=== PATIENT | female | born 1935 | race Caucasian/White ===

== ENCOUNTER 2017-08-06 12:41 | Inpatient (IN) ==
[2017-08-06] MEDS ORDERED: CeFAZolin Syr 2,000MG/20 ML 2,000 MG/20 ML SYRINGE IVPB ONE (13:11)
[2017-08-06] MEDS ORDERED: Vancomycin 1,250 MG in D5% in Water 250 ML IVPB ONE (13:11)
[2017-08-06] MEDS ORDERED: Lidocaine -MPF 1% 2 ML VIAL ID ONE (13:11)
[2017-08-06] MEDS ORDERED: Ringers Solution, Lactated 1,000 ML IVC SCH (13:15)
[2017-08-06] MEDS ORDERED: Albuterol 2.5 MG/3 ML NEBULIZER IH ONE (13:21)
--- NOTE | 2017-08-06 13:21 | Anesthesia Evaluation PreOp ---
Date of Encounter: 08/06/17 Time of Encounter: 13:18 - Past History Planned Operation: LLE graft thrombectomy with revision Cardiac History: HTN, Hyperlipidemia, Other (PAD) Pulmonary History: COPD SAW GRINDER History: Denies Any Significant HX Other Medical History: Diabetes Type II, Thyroid (hypothyroid), Other ([place]' s dz) Anesthesia History: No Prior Anesthetic Complications, Past Anesthesia ( hysterectomy, fem-pop bypass, excision scc of left hand) Alcohol Use: recent Drug use: none Medications and Allergies Aspirin [Serene Chewable Aspirin] 81 mg PO 05/02/15 [History] Calcium 600 + Vit D 400 Tablet PO BID 05/02/15 [History] Gabapentin 300 mg PO 05/02/15 [History] Imipramine HCl [Tofranil] 25 mg PO HS 05/02/15 [History] Metoprolol [Lopressor] 50 mg PO DAILY 05/02/15 [History] Carbidopa/Levodopa/Entacapone [Stalevo 75 Tablet] 1 each PO 02/08/16 [History] Ciprofloxacin HCl [Cipro] 250 mg PO BID 5 Days tablet 02/08/16 [Rx] Hydrocortisone [Cortef] 5 mg PO 02/08/16 [History] Hydrocortisone [Cortef] 10 mg PO DAILY 02/08/16 [History] Losartan/HCTZ [Hyzaar 50-12.5 Tablet] 25 mg PO DAILY 02/08/16 [History] Pravastatin Sodium [Pravachol] 80 mg PO 02/08/16 [History] 3 Allergy/AdvReac Type Severity Reaction Status Date / Time amlodipine Allergy Hives Verified 05/02/15 13:11 codeine Allergy Anxiety Verified 05/02/15 13:11 carisoprodol [From Soma] AdvReac Itching Verified 05/02/15 13:06 aml AdvReac Swelling Uncoded 05/02/15 13:11 of Lip/Tongue/Throat - Meds/Allergy Pre-op Review Medications Reviewed: Yes Allergies Reviewed: Yes Beta Blockers on Current Med List: Yes If Beta Blockers taken, Date/Time (Last Dose taken): 730am today Anesthesia Results - Labs Laboratory Tests 07/17/17 07/17/17 08/05/17 07:13 07:13 13:52 WBC 9.1 Hgb 14.5 Hct 45.2 H Plt Count 214 PT 11.7 INR 1.1 APTT 29.2 Sodium 140 Potassium 4.1 Chloride 103 Carbon Dioxide 27 BUN 20 Creatinine 1.29 H Glucose 97 POC Glucose Est Mean Plasma Glucose Hemoglobin A1c 08/05/17 08/06/17 13:52 13:07 WBC Hgb Hct Plt Count PT INR APTT Sodium Potassium Chloride Carbon Dioxide BUN Creatinine Glucose POC Glucose 103 H Est Mean Plasma Glucose 131 Hemoglobin A1c 6.2 H - Imaging EKG: image reviewed (SR, occ PVCs Q waves in II and II, unchanged from previous EKG) Additional studies: ECHO EF 60-65% Normal LV structure and fuction normal RV mild to mod aortic regurgitation no pul HTN [facility] 2013 severe single vessel cad (RCA) non obstructive dx in LAD and Cx aggressive risk factor modification was recommended Anesthesia Exam O2 Sat Height 1.7 m Height 1.7 m Height 1.7 m Weight 75.296 kg Weight 75.296 kg Weight 75.296 kg O2 Sat by Pulse Oximetry 99 O2 Sat by Pulse Oximetry 99 O2 Sat by Pulse Oximetry 99 Vital Signs Temp Pulse Resp BP Pulse Ox 98.2 F 84 18 161/80 99 08/06/17 13:10 08/06/17 13:10 08/06/17 13:10 08/06/17 13:10 08/06/17 13:10 Height: 1.7m Weight: 75kg - HEENT Pupil (Motor): Pupils equal, EOMI - SAW GRINDER LOC: Oriented SAW GRINDER Motor: Normal RUE, Normal LUE, Normal RLE, Normal LLE, Normal Face SAW GRINDER Sensory: Normal: RUE, LUE, RLE, LLE, Face - Cardiac Rhythm: Regular - Pulmonary Breath Sounds: bilateral Clear Respiratory Effort: Symmetrical Anesthesia Assess/Plan ASA Score: 3 Modified Maureen Scale for Level of Consciousness: Cooperative, oriented, and tranquil Anesthetic Plan: General (r/b/a discussed, questions answered, consent obtained) Monitoring Plan: Standard Monitors, A-Line (+/- post induction)
[2017-08-06] MEDS ORDERED: *HR* Propofol 200 MG/20 ML VIAL IVP ONE (13:48)
[2017-08-06] MEDS ORDERED: Heparin 1,000 UNITS/500 mL NS 1,000 ML ONE (13:59)
--- NOTE | 2017-08-06 14:07 | History & Physical Report ---
Date of Encounter: 08/06/17 Time of Encounter: 14:00 24 Hour HP Update - Instructions Instructions: If the History and Physical is less than 30 days old and was completed prior to A.M. admission and or procedure and has NOT been updated on calendar day of procedure please complete this update prior to performing procedure. - Update Patient reports changes in Medical Condition: No Changes in examination, assessment, or condition: No Changes in Medication: No Preop tests/diagnostics Reviewed: Yes Surgery Remains Indicated: Yes Consent for Planned Operative Procedure(s) Verified: Yes - Pre-Operative Checklist Preoperative Checklist Indicated: Yes Prophylactic Antibiotic Ordered: Yes (Vancomycin due to MRSA risk) Home Medications Include Beta Placido: Yes Beta Placido Taken Today (Day of Surgery): Yes Beta Placido Taken Yesterday (Day Prior to Surgery): Yes Is VTE Prophylaxis Indicated?: Yes
[2017-08-06] MEDS ORDERED: Hydrocortisone Sodium Succ 100 MG/2 ML VIAL ONE (14:18)
[2017-08-06] MEDS ORDERED: *HR* Heparin 5,000 UNIT/ML VIAL ONE (15:29)
[2017-08-06] MEDS ORDERED: Lidocaine -MPF 4% 5 ML AMPUL ONE (15:51)
[2017-08-06] MEDS ORDERED: Lidocaine -MPF 2% 2 ML VIAL ONE (15:51)
[2017-08-06] MEDS ORDERED: *HR* Rocuronium Bromide 50 MG/5 ML VIAL ONE (15:51)
[2017-08-06] MEDS ORDERED: Dexamethasone 4 MG/ML VIAL ONE (15:51)
[2017-08-06] MEDS ORDERED: Ondansetron 4 MG/2 ML VIAL ONE (15:51)
[2017-08-06] MEDS ORDERED: *HR* FentaNYL (PF) 100 MCG/2 ML VIAL ONE (15:51)
[2017-08-06] MEDS ORDERED: Naloxone 0.4 MG/ML INJ IVP PRN ×2 (16:24→17:34)
[2017-08-06] MEDS ORDERED: Acetaminophen 325 MG TABLET PO PRN ×2 (16:24→17:34)
[2017-08-06] MEDS ORDERED: *HR* OxyCODONE Immed Rel 5 MG TABLET PO PRN ×2 (16:24→17:34)
[2017-08-06] MEDS ORDERED: *HR* Morphine 2 MG/ML SYRINGE IVP PRN ×2 (16:24→17:34)
[2017-08-06] MEDS ORDERED: Ondansetron 4 MG/2 ML VIAL IVP PRN ×2 (16:24→17:34)
[2017-08-06] MEDS ORDERED: *HR* HYDROcodone/Acet 5/325 mg TABLET PO PRN ×2 (16:24→17:34)
--- NOTE | 2017-08-06 16:24 | Operative Note ---
Date of procedure: 08/06/17 Pre-op diagnosis: Peripheral vascular disease with disabling claudication Post-op diagnosis: same Procedure: 1. Left femoral to popliteal artery bypass graft thrombectomy. Complications: None Anesthesia: JENA Surgeon: Avery Santos Estimated blood loss (cc): 50 Specimen: Right lower extremity thrombus and plaque Condition: stable Disposition: PACU Procedure in Detail: Indications: The patient is an 81 year old female with a history of peripheral vascular disease with disabling claudication. She previously underwent a left femoral to above knee popliteal artery bypass for a left superficial femoral artery occlusion. Her symptoms resolved. She has now developed recurrent symptoms. A CT scan revealed that her graft was occluded. Thrombectomy with revision was recommended. Procedure: The patient was identified in the preoperative area. The risks, benefits and alternatives were discussed and all questions were answered. The patient was taken to the operating room and placed in the supine position on the operating room table. After the induction of general endotracheal anesthesia, the patient was cleaned and draped in the normal sterile fashion. An oblique incision was made sharply through her previous left groin scar overlying the femoral vessels. Hemostasis was obtained with electrocautery. Through a process of blunt, sharp and electrocautery dissection, the distal external iliac, deep and superficial femoral arteries were dissected and surrounded with vessel loops. The graft was also dissected and surrounded with vesel loops. The patient received a 5000 unit bolus of heparin. After waiting adequate time or the heparin to circulate, the vessels were occluded with the vessel loops. A longitudinal arteriotom was made through the graft anastamosis and extended proximally into the [place] artery. No flow was noted on release of the loops. A 4 kenyan benita catheter was passed into the aorta and inflated. It was withdrawn and some acute thrombus and chronic embolic material was retrieved. This was sent to pathology. Brisk pulsatile flow was noted at this time. Additional passes of the catheter resulted in no additional thrombus or embolus proximally. A 4 kenyan benita catheter was passed distally and thrombus was retrieved from the deep femoral artery. Significant retrograde flow was noted from the deep femoral artery. A 4 kenyan benita catheter was passed distally through the graft and into the distal popliteal artery. Thrombus was retrieved on the first pass. Additional passes resulted in no additional thrombus. Retrograde flow as noted through the graft. The vessels and graft were flushed with heparin. Intimal hyperplasia was noted to be present along the anastamosis. Using a dental freer, an endarectomy was performed. The proximal graft was noted to have a kink as well. Excess graft was excised and graft was then sutured to the artery witha running 6-0 prolene. The graftotomy was reapproximated with arunnnig 6-0 prolene. Prior to completing the closure, the vessels were flushed , the graft was flushed and heparin was infused into the lumen. Flow was restored in the [place] vessels and graft. Polyphasic signals were identified in the posterior tibial and dorsalis pedis arteries below the ankle. The wound was irrigated with antibiotic containing saline. Hemostasis was obtained with electrocautery. The wound was reapproximated with 2-0 and 3-0 vicryl. Skin was reapproximated with 3-0 Monocryl. Sterile dressings were applied. The patient was extubated and taken to the recover room in stable condition.
[2017-08-06] MEDS ORDERED: 0.9 % Sodium Chloride 1,000 ML IVC SCH ×2 (16:30→17:34)
[2017-08-06] MEDS ORDERED: *HR* Labetalol 20 MG/4 ML SYRINGE IVP PRN ×2 (16:30→17:34)
[2017-08-06] MEDS: *HR* Labetalol 20 MG/4 ML SYRINGE IVP PRN ×2 (16:57→17:14)
--- NOTE | 2017-08-06 17:24 | Anesthesia Evaluation Post Op ---
Date of Encounter: 08/06/17 Time of Encounter: 17:30 - Vital Signs Vital Signs: Vital Signs/O2 Sat/Glucose, Most Current Temp Pulse Resp BP Pulse Ox 08/06/17 17:11 68 16 187/72 98 08/06/17 17:02 65 16 160/60 98 08/06/17 16:52 97.2 F L 65 16 188/72 96 08/06/17 16:42 67 16 187/75 99 08/06/17 16:34 68 16 164/61 98 08/06/17 16:24 97.6 F 74 12 180/74 100 - Lungs Lungs: Clear Ascult./Percussion - Airway Airway: Non-obstructed - Cardiovascular Regular Rate - Mental Status Mental Status: Alert & Oriented, Answers Appropriately - Pain Pain Scale: 1 - Nausea Vomiting Nausea Vomiting: Not Present - Hydration Hydration: Ice chips - Discharge PostOp Status: Transfer Patient to floor
[2017-08-06] MEDS: *HR* Metoprolol 5 MG/5 ML VIAL IVP SCH (17:57)
[2017-08-06] MEDS: *HR* Heparin 5,000 UNIT/ML VIAL SQ SCH (17:57)
[2017-08-06] MEDS ORDERED: *HR* Metoprolol 5 MG/5 ML VIAL IVP SCH (18:00)
[2017-08-06] MEDS ORDERED: *HR* Heparin 5,000 UNIT/ML VIAL SQ SCH (18:00)
[2017-08-06] MEDS ORDERED: Hydrocortisone 10 MG TABLET PO SCH (21:00)
[2017-08-06] MEDS ORDERED: Gabapentin 300 MG CAPSULE PO SCH (21:00)
[2017-08-06] MEDS: ceFAZolin 2,000 MG in D5% in Water 100 ML IVPB SCH (21:10)
[2017-08-07] MEDS ORDERED: CeFAZolin Premix DUPLEX 2,000 MG/50 ML BAG IVPB SCH
[2017-08-07] MEDS: *HR* Metoprolol 5 MG/5 ML VIAL IVP SCH ×2 (00:27→05:44)
[2017-08-07] MEDS ORDERED: Vancomycin 0 MG in D5% in Water 250 ML IVPB ONE (02:00)
[2017-08-07 03:53] LABS: Basophils % 0.4 %; Eosinophils % 0.1 %; Hematocrit 40.3 % (35.3-44.9); Lymphocytes # 1.8 K/mcL (0.6-4.6); Lymphocytes % 16.7 %; Mean Corpuscular HGB Conc 32.3 g/dL (31.6-35.5); Mean Corpuscular Hemoglobin 27.6 pg (28.0-33.3); Mean Corpuscular Volume 85.6 fL (83.0-100.0); Monocytes # 0.4 K/mcL (0.0-1.3); Monocytes % 3.8 %; Neutrophils # 8.5 K/mcL (1.6-8.9); Platelet Count 181 K/mcL (140-400); Red Blood Count 4.71 M/mcL (3.82-4.97); Red Cell Distribution Width 13.2 % (11.5-14.5)
[2017-08-07 04:11] LABS: Calcium 8.8 mg/dL (8.6-10.8); Potassium 4.2 mEq/L (3.5-4.5)
[2017-08-07] MEDS: ceFAZolin 2,000 MG in D5% in Water 100 ML IVPB SCH (05:44)
[2017-08-07] MEDS: *HR* Heparin 5,000 UNIT/ML VIAL SQ SCH (05:44)
[2017-08-07 07:07] VITALS: BP 162/61
--- NOTE | 2017-08-07 07:25 | Discharge Summary ---
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 Her left lower extremity is warm and she has polyphasic signals. Her compartments are soft. She has no hematoma. She will be discharged today. The patient was advised to increase her ASA to 81mg daily. SHe has previously had a GI bleed with plavix. (2) Hypertension Priority: Secondary Status: Chronic Qualifiers: Hypertension type: essential hypertension Qualified Code(s): I10 - Essential (primary) hypertension (3) CKD (chronic kidney disease) stage 3, GFR 30-59 ml/min Priority: Secondary Status: Chronic - Discharge Medications Prescriptions: OxyCODONE/APAP 5/325 [Percocet 5/325 MG] 1 each PO Q6HR PRN #20 tablet PRN Reason: POSTOPERATIVE PAIN Home Medications: Calcium Carbonate/Vitamin D3 [Calcium 600 + Vit D Tablet] 1 tab PO BID #0 [History] Gabapentin 300 mg PO HS 05/02/15 [History] Imipramine HCl [Tofranil] 25 mg PO HS 05/02/15 [History] Metoprolol [Lopressor] 50 mg PO DAILY 05/02/15 [History] Hydrocortisone [Cortef] 10 mg PO DAILY 02/08/16 [History] Losartan/HCTZ [Hyzaar 50-12.5 Tablet] 25 mg PO DAILY 02/08/16 [History] Pravastatin Sodium [Pravachol] 80 mg PO HS 02/08/16 [History] Albuterol Sulfate [Proair Hfa] 1 puff IH PRN PRN 08/06/17 [History] Hydrocortisone [Cortef] 5 mg PO HS 08/06/17 [History] Levothyroxine Sodium 75 mcg PO DAILY 08/06/17 [History] Multivitamin [One Daily Essential] 1 tab PO DAILY 08/06/17 [History] Polyethylene Glycol 3350 [MiraLAX] 17 gm PO DAILY 08/06/17 [History] Potassium Chloride [Klor-Con Sprinkle] 16 meq PO DAILY 08/06/17 [History] Tiotropium [Spiriva] 1 cap IH DAILY 08/06/17 [History] Aspirin 81 mg PO DAILY tab.chew 08/07/17 [Rx] OxyCODONE/APAP 5/325 [Percocet 5/325 MG] 1 each PO Q6HR PRN #20 tablet 08/07/17 [Rx] Allergies/Adverse Reactions: 3 Allergy/AdvReac Type Severity Reaction Status Date / Time amlodipine Allergy Hives Verified 08/06/17 13:40 codeine Allergy Anxiety Verified 08/06/17 13:40 carisoprodol [From Soma] AdvReac Itching Verified 08/06/17 13:40 aml AdvReac Swelling Uncoded 05/02/15 13:11 of Lip/Tongue/Throat Date of admission: 08/06/17 17:32 Primary care physician: Vicente Tate MD Procedure(s) Performed: Left lower extremity thrombectomy Discharging clinician: Avery Santos Anticipated date of discharge: 08/07/17 - Patient Status Disposition: Home, Self-Care Condition: Good Functional capacity at discharge: independent ambulation Overall status at discharge: patient is back to baseline - Discharge Instructions Follow Up With: Ciera Guerrero CNP [Advanced Practice Nurse] - 08/12/17 11:00 am Avery Santos MD [Partnered Physician] - 09/03/17 1:50 pm Additional Instructions: May remove bandage and shower 08/08/17. Wash wound gently and pat to dry. Apply dry gauze to wound daily for 7 days. No tub baths or swimming until 08/26/17. Call Dr. Santos at [phone] with questions or concerns. - Diet and Activity Activity: increase activity as tolerated Diet: advance to your usual diet - Hospital Course Hospital course: Ms. Mororw is a 81 year old female - Time Spent with Patient Total time spent providing and/or coordinating discharge services: Exam Vital Signs, Last 4 Hours Temp Pulse Resp BP Pulse Ox 08/07/17 07:05 97.5 F L 75 16 162/61 95 08/07/17 04:25 97.6 F 73 15 105/51 93 - VTE Documentation of Mechanical Device: Intermittent pneumatic compression device
[2017-08-07] MEDS ORDERED: Multivit/Ca/Min/Fe/FA 1 TAB TABLET PO SCH (09:00)
[2017-08-07] MEDS ORDERED: Cholecalciferol (D-3) 1,000 UNIT TABLET PO SCH (09:00)
[2017-08-07] MEDS ORDERED: Tiotropium 18 MCG inhalation IH SCH (09:00)
[2017-08-07] MEDS ORDERED: Hydrocortisone 10 MG TABLET PO SCH (09:00)
[2017-08-07] MEDS ORDERED: Losartan/HCTZ 50-12.5 TABLET PO SCH (09:00)
--- NOTE | 2017-08-07 17:48 | Electrocardiograph Report ---
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
[2017-08-08] MEDS ORDERED: Aspirin 81 MG TAB.CHEW PO SCH (09:00)
== END 2017-08-07 10:11 | disposition home or self-care (01) | DRG 253 ==
LOC: SAMDAY 12:41 → 2NNU 17:32
PROVIDERS: ADMIT Surgery; ATTEND Surgery

== ENCOUNTER 2017-08-08 00:09 | Inpatient (IN) ==
[2017-08-08] MEDS ORDERED: Ondansetron 4 MG/2 ML VIAL IVP PRN (02:38)
[2017-08-08] MEDS ORDERED: Naloxone 0.4 MG/ML INJ IVP PRN (02:38)
[2017-08-08] MEDS ORDERED: Acetaminophen 325 MG TABLET PO PRN ×2 (02:40→08:35)
[2017-08-08] MEDS ORDERED: *HR* OxyCODONE/APAP 5/325 TABLET PO PRN ×2 (02:41→08:35)
--- NOTE | 2017-08-08 02:47 | Internal Med History&Physical ---
Addendum entered and electronically signed by Raleigh Engel DO 08/08/17 03:28: DVT prophylaxis: Heparin 5000 units q12 hours. Original Note: <Raleigh Egnel - Last Filed: 08/08/17 03:25> Date of Encounter: 08/08/17 Time of Encounter: 02:44 Assessment and Plan (1) Chest pain Current visit: Yes Status: Acute - CP most likely etiology of GERD. - Atypical chest pain given HPI - Troponin of 0.06 in [place] ED. Will continue to trend. - EKG showing first degree heart block, no ST changes. - Continue ASA and BB. Holding Heparin due to hx of GI bleed. - Cardiology consulted. Appreciate recommendations. - Echo in AM. - Omeprazole 40 qday Qualifiers: Chest pain type: precordial pain Qualified Code(s): R07.2 - Precordial pain (2) Elevated troponin I level Current visit: Yes Status: Acute - Troponin of 0.06 and [place] emergency department - We will continue to trend 3 - Likely etiology of type II NSTEMI given recent vascular surgery - Will hold off on heparin given hx of GI bleed, continue ASA, BB - Cardiology and echo as above. (3) Leukocytosis Current visit: Yes Status: Acute - WBC of 18.7 in [place] ED - Most likely reactive given recent surgery. - Pt is on chronic steroids for [place]'s disease. - Continue to monitor. Doubt infectious cause due to HPI, lack of symptoms. - Pt non septic. Qualifiers: Leukocytosis type: unspecified Qualified Code(s): D72.829 - Elevated white blood cell count, unspecified (4) Hypertension Current visit: Yes Status: Chronic - BP well controlled at this time. - Continue home BB. Qualifiers: Hypertension type: essential hypertension Qualified Code(s): I10 - Essential (primary) hypertension (5) CKD (chronic kidney disease) stage 3, GFR 30-59 ml/min Current visit: Yes Status: Chronic - BUN/Cr appears to be at baseline. - Avoid nephrotoxic agents. (6) [place] disease Current visit: Yes Status: Chronic - History of [place] disease per patient. - BP stable. May be contributing to lower CP and nausea given recent stress of surgery. - Currently asymptomatic. - Continue home cortef dosage. (7) DVT prophylaxis Current visit: Yes Status: Acute - SCDs given history of GI bleed Internal Medicine - H&P: HPI Chief complaint: Chest pain Admitted From: Emergency Dept Plans for Post Hospital Care: Home History of present illness: Ms. Morrow is a 81 year old female with past medical history of CAD, type 2 diabetes, hyperlipidemia, CKD, GERD presents to emergency department with a chief complaint of substernal chest pain since 1800 yesterday evening. She states that she finished eating dinner and began to experience a dull pain that she describes as "a knot in her chest ". She also states she experienced some pain in her left forearm and hand at this time. She states she was at rest during onset, and denies any symptoms of vomiting, diaphoresis, but does admit to some symptoms of shortness of breath at rest as well as nausea. She has never experienced these symptoms before. She states she had a salad with turkey on it, states it was mildly spicy. She tried taking chewable antacids, however this did not improve her symptoms. Of note, she recently had surgery on with Dr. Santos for left femoral to popliteal bypass graft thrombectomy for claudication. She states she tolerated the procedure well, but has noticed some residual swelling in the left lower extremity. She states her pain subsided in the emergency room at [place] when she was given 4 aspirins and nitroglycerin. In the [place] emergency room, vital signs were unremarkable. Lab results were significant for a white blood cell count of 18, elevated BUN/creatinine at her baseline for CKD, troponin 0.06. EKG showed sinus rhythm with first-degree heart block. Chest x-ray at the time was negative for acute process. She was transferred to [facility] for further evaluation and management. Past Med Surg Social Fam HX - Past Medical History Medical history: arthritis, diabetes, GERD, hyperlipidemia, hypertension, myocardial infarction, thyroid disease, TIA Psychiatric history: no psych history - Past Surgical History Surgical History: appendectomy, breast surgery (Implants), cataract, hysterectomy, orthopedic, other (Right foot), LE vascular intervention - Social History Smoking Status: Former smoker Smokeless Tobacco Status: No Alcohol use: recent (1 glass wine daily) Drug use: none Internal Medicine - H&P: Meds Calcium Carbonate/Vitamin D3 [Calcium 600 + Vit D Tablet] 1 tab PO BID #0 [History] Gabapentin 300 mg PO HS 05/02/15 [History] Imipramine HCl [Tofranil] 25 mg PO HS 05/02/15 [History] Metoprolol [Lopressor] 50 mg PO DAILY 05/02/15 [History] Hydrocortisone [Cortef] 10 mg PO DAILY 02/08/16 [History] Pravastatin Sodium [Pravachol] 80 mg PO HS 02/08/16 [History] Albuterol Sulfate [Proair Hfa] 1 puff IH PRN PRN 08/06/17 [History] Hydrocortisone [Cortef] 5 mg PO HS 08/06/17 [History] Levothyroxine Sodium 75 mcg PO DAILY 08/06/17 [History] Multivitamin [One Daily Essential] 1 tab PO DAILY 08/06/17 [History] Polyethylene Glycol 3350 [MiraLAX] 17 gm PO DAILY 08/06/17 [History] Potassium Chloride [Klor-Con Sprinkle] 16 meq PO DAILY 08/06/17 [History] Tiotropium [Spiriva] 1 cap IH DAILY 08/06/17 [History] Aspirin 81 mg PO DAILY tab.chew 08/07/17 [Rx] Losartan/Hydrochlorothiazide [Hyzaar 100-25 Tablet] 1 each PO QAM 08/07/17 [ History] OxyCODONE/APAP 5/325 [Percocet 5/325 MG] 1 each PO Q6HR PRN #20 tablet 08/07/17 [Rx] 3 Allergy/AdvReac Type Severity Reaction Status Date / Time amlodipine Allergy Hives Verified 08/06/17 13:40 codeine Allergy Anxiety Verified 08/06/17 13:40 carisoprodol [From Soma] AdvReac Itching Verified 08/06/17 13:40 All Systems PM: A 10-system review of systems was performed and is negative for pertinent findings except as documented above in the HPI. - Constitutional Constitutional: no chills, no fatigue, no fever(s), no lethargy, no weakness - Cardiovascular Cardiovascular ROS IM: chest pain, dyspnea, edema, no claudication, no dyspnea on exertion, no lightheadedness, no palpitations - Respiratory Respiratory: dyspnea, no cough, no dyspnea on exertion, no wheezing, no pain with cough - Gastrointestinal Gastrointestinal: dyspepsia, heartburn, no abdominal pain, no belching, no change in bowel habits, no constipation, no diarrhea, no hematochezia, no melena , no nausea, no vomiting - Genitourinary Genitourinary: no dysuria - Musculoskeletal Musculoskeletal ROS IM: numbness (chronic), tingling - Neurological Neurological ROS: numbness, tremor(s), no confusion, no focal weakness, no weakness - Constitutional Vitals: Temp Pulse Resp BP Pulse Ox 97.4 F L 84 14 111/65 98 08/08/17 01:34 08/08/17 01:34 08/08/17 01:34 08/08/17 01:34 08/08/17 01:34 Exam: Gen.: Vitals noted. No acute distress. AAOx3. Resting comfortably in bed HEENT: PERRL, oropharynx clear, Normocephalic, atraumatic Cardiac: RRR, crescendo decrescendo murmur -systolic, +S1/S2 Pulmonary: CTA bilaterally, no wheezes, rales or rhonchi, equal chest expansion Abdomen: soft, nontender, BS noted, no guarding MSK: ROM intact, no joint swelling noted Extremities: no BLE edema, nontender calf, no cyanosis or clubbing Neuro: A&Ox3, moves all extremities, no focal deficits Psych: Appropriate mood and behavior <Raghavendra Kang - Last Filed: 08/08/17 04:20> Date of Encounter: 08/08/17 Internal Medicine - H&P: HPI History of present illness: Ms. Morrow is a 81 year old female All Systems PM: A 10-system review of systems was performed and is negative for pertinent findings except as documented above in the HPI. - Constitutional Vitals: Temp Pulse Resp BP Pulse Ox 97.4 F L 84 14 111/65 98 08/08/17 01:34 08/08/17 01:34 08/08/17 01:34 08/08/17 01:34 08/08/17 01:34 Internal Med - H&P Results - Labs CBC & Chem 7: 08/08/17 03:07 08/08/17 03:07 Labs: Short CBC 08/08/17 Range/Units 03:07 WBC 14.5 H (4.3-11.1) K/mcL Hgb 11.3 L (11.5-15.4) g/dL Hct 35.2 L (35.3-44.9) % Plt Count 145 (140-400) K/mcL Neutrophils # 10.6 H (1.6-8.9) K/mcL BMP 08/08/17 03:07 Sodium 136 Potassium 4.4 Chloride 102 Carbon Dioxide 28 BUN 30 H Creatinine 1.18 H Glucose 132 H Calcium 8.7 Cardiac Enzymes 08/08/17 Range/Units 03:07 Troponin I 1.71 H* (0-0.03) ng/mL - Attending Attestation I have seen and examined this pt independently, I have discussed with resident physician Dr Engel regarding the management plan. Agree with the documentation. Pt has chest pain. With elevated troponin. Consider NSTEMI. Will start heparin drip. Cardio consult. Pt has [place] disease on po hydrocortisone. Will switch to stress dose as pt developped NSTEMI.
[2017-08-08 03:27] LABS: Basophils # 0.1 K/mcL (0.0-0.2); Basophils % 0.3 %; Eosinophils # 0.1 K/mcL (0.0-0.6); Eosinophils % 0.5 %; Hematocrit 35.2 % (35.3-44.9); Hemoglobin 11.3 g/dL (11.5-15.4); Immature Granulocytes % 1.4 % (0-4); Lymphocytes # 2.5 K/mcL (0.6-4.6); Mean Corpuscular HGB Conc 32.1 g/dL (31.6-35.5); Mean Corpuscular Hemoglobin 27.7 pg (28.0-33.3); Mean Corpuscular Volume 86.3 fL (83.0-100.0); Monocytes # 1.1 K/mcL (0.0-1.3); Monocytes % 7.4 %; Neutrophils # 10.6 K/mcL (1.6-8.9); Platelet Count 145 K/mcL (140-400); Red Blood Count 4.08 M/mcL (3.82-4.97); Red Cell Distribution Width 13.3 % (11.5-14.5); Segmented Neutrophils % 73.4 %
[2017-08-08 03:39] LABS: Calcium 8.7 mg/dL (8.6-10.8); Magnesium 1.9 mg/dL (1.6-2.6); Potassium 4.4 mEq/L (3.5-4.5)
[2017-08-08] MEDS ORDERED: *HR* Heparin 5,000 UNIT/ML VIAL IVP PRN ×2 (04:06)
[2017-08-08] MEDS ORDERED: *HR* Heparin 5,000 UNIT/ML VIAL IVP ONE (04:06)
[2017-08-08] MEDS: Heparin 25,000 UNIT/500 ML D5W 25,000 UNIT/500 ML MLS IVC SCH ×2 (04:46→23:45)
[2017-08-08] MEDS ORDERED: Dextrose Gel 15 GM PO PRN ×2 (05:24)
[2017-08-08] MEDS ORDERED: *HR* Dextrose 50 % in Water (Syg) 50 ML SYRINGE IVP PRN (05:24)
[2017-08-08] MEDS ORDERED: D5% in Water 1,000 ML IVC PRN (05:24)
[2017-08-08 05:48] LABS: Hemoglobin A1C 6.1 %
[2017-08-08] MEDS ORDERED: *HR* Heparin 5,000 UNIT/ML VIAL SQ SCH (06:00)
[2017-08-08] MEDS: Aspirin 81 MG TAB.CHEW PO SCH (07:59)
[2017-08-08] MEDS ORDERED: Hydrocortisone Sodium Succ 100 MG/2 ML VIAL IVP SCH (08:00)
[2017-08-08] MEDS: Insulin LISPRO 300 UNITS/3 ML VIAL SQ SCH ×4 (08:00→20:46)
--- NOTE | 2017-08-08 08:38 | Cardiology Consult Note ---
<Steve Martinez - Last Filed: 08/08/17 09:47> Date of Encounter: 08/08/17 Time of Encounter: 08:38 Assessment and Plan (1) NSTEMI (non-ST elevated myocardial infarction) Current Visit: Yes Status: Acute Trop bump 0.06 > 1.71 No active chest pain or acute distress Cr 1.18 Vital signs stable Heparin drip NPO ECHO pending Previous studies: Nuclear stress test (02/28/2014): - Negative for ischemia or infarct. There was a small size, mild intensity fixed perfusion defect in the mid anteroseptal segments. ECHO (03/21/2014) - EF 60-65%, normal LV and RV motion, mild LV diastolic dysfunction and mild- mod AR. Left heart catherization (03/22/2014) - 100% stenosis in mid RCA with good distal flow from collaterals, LMCA patent and 30% in Circ and LAD Plan to continue heparin therapy and will re-evaluate LHC decision pending any ECHO changes since previous. With the history of GI bleed several years ago while taking both Fosamax and Plavix together, recommend a plavix challenge with PPI therapy on discharge if no LHC is warranted during in-patient stay. However, if there are changes on ECHO today and if there are any possible stent placements, bare metal stent would preferred to lessen the duration of dual anti-platelet therapy. (2) Chest pain Current Visit: Yes Status: Acute 03/01 on arrival to the [place] ED. Resolved completely. No active chest pain. See above for plan. Qualifiers: Chest pain type: precordial pain Qualified Code(s): R07.2 - Precordial pain (3) CAD (coronary artery disease) Current Visit: Yes Status: Acute Nuclear stress test (02/28/2014): - Negative for ischemia or infarct. There was a small size, mild intensity fixed perfusion defect in the mid anteroseptal segments. ECHO (03/21/2014) - EF 60-65%, normal LV and RV motion, mild LV diastolic dysfunction and mild- mod AR. Left heart catherization (03/22/2014) - 100% stensis in mid RCA with good distal flow from collaterals, LMCA patent and 30% in Circ and LAD. Taking ASA, Losartan/HCTZ combo, Metoprolol succinate and Pravastatin. Qualifiers: Coronary Disease-Associated Artery/Lesion type: [place] artery [place] vs. transplanted heart: [place] heart Associated angina: with unspecified angina Qualified Code(s): I25.119 - Atherosclerotic heart disease of [place] coronary artery with unspecified angina pectoris (4) T2DM (type 2 diabetes mellitus) Current Visit: Yes Status: Chronic Medicine managing. 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 Qualifiers: COPD type: unspecified COPD Qualified Code(s): J44.9 - Chronic obstructive pulmonary disease, unspecified (6) PAD (peripheral artery disease) Current Visit: Yes Status: Chronic She had underwent a successful left femoral popliteal bypass on 04/06/2014 - Recently had a thrombectomy of the graft on 08/06/2017 and discharged 08/07. History of GI bleed while taking Plavix and Fosamax several years ago. She discontinued both immediately and plavix was held since then. (7) Hypertension Current Visit: Yes Status: Chronic Well controlled at this time. No changes. Qualifiers: Hypertension type: essential hypertension Qualified Code(s): I10 - Essential (primary) hypertension (8) [place] disease Current Visit: Yes Status: Chronic On chronic steroid use. Medicine managing. Likely explains bump in WBC Discussion w patient/family: The assessment and plan as outlined above was discussed with the patient and/or family members who expressed understanding and agreement. All questions were answered. Thank you for involving us in the care of your patient. Please call with any questions. History of Present Illness Consult date: 08/08/17 Chief complaint: chest pain History of present illness: Ms. Morrow is a very pleasant 81 year old female with past medical history of CAD, PAD, ALEENA, GERD, HTN, T2DM, TIA (2003), Hyperlipidemia, COPD and [place] disease who presented to the [place] [facility] with a chief complaint of chest pain. She reports that she felt 6/10 substernal chest pain that radiated to her back and left arm. She describes the pain as pressure that was associated with nausea. Patient ate dinner and shortly after felt the chest pain start while watching television. She describes similarly located pain in the past after eating but not to this extent. She took 2 Aleve at home without relief. On arrival to the [place] ED, Trop 0.06 and pain was relieved with ASA and nitro. CXR neg. EKG showed sinus rhythm with 1st degree AV block, LV hypertrophy and anterosetpal Q waves. She was subsequently transferred to [facility] for further workup and was admitted via the hospitalist service. Trop elevated to 1.71 and she was started on heparin drip for suspected NSTEMI and thus, cardiology was consulted. On evaluation, she reports that she quit smoking in 2001 but previously smoked 2PPD for 50 years. No EtOH use. She does report a history of GI bleed while taking Plavix and Fosamax at the same time several years and discontinued both medications. No pertinent family cardiac history. No active chest pain. ECHO pending this morning. She denies any chest pain on exertion, shortness of breath, palpitations or LE edema. She goes on to state that she has been experiencing lightheadedness over the last several months. EMR review shows nuclear stress test on 02/28/2014 was negative for ischemia or infarct, but there was a small size, mild intensity fixed perfusion defect in the mid anteroseptal segments. ECHO performed 03/21/2014 with EF 60-65%, normal LV and RV motion, mild LV diastolic dysfunction and mild-mod AR. Left heart catherization on 03/22/2014 showed 100% stensis in mid RCA with good distal flow from collaterals, LMCA patent and 30% in Circ and LAD. She had underwent a successful left femoral popliteal bypass on 04/06/14 and recently had a thrombectomy of the graft on 08/06/2017. We will continue to follow Ms. Morrow and offer further recommendations and interventions if indicated. Past Med Surg Social Fam HX - Past Medical History Medical history: arthritis, diabetes, GERD, hyperlipidemia, hypertension, myocardial infarction, thyroid disease, TIA Psychiatric history: no psych history - Past Surgical History Surgical History: appendectomy, breast surgery (Implants), cataract, hysterectomy, orthopedic, other (Right foot), LE vascular intervention - Social History Smoking Status: Former smoker Smokeless Tobacco Status: No Alcohol use: recent (1 glass wine daily) Drug use: none Medications and Allergies Calcium Carbonate/Vitamin D3 [Calcium 600 + Vit D Tablet] 1 tab PO BID #0 [History] Gabapentin 300 mg PO HS 05/02/15 [History] Imipramine HCl [Tofranil] 25 mg PO HS 05/02/15 [History] Hydrocortisone [Cortef] 10 mg PO DAILY 02/08/16 [History] Pravastatin Sodium [Pravachol] 80 mg PO HS 02/08/16 [History] Albuterol Sulfate [Proair Hfa] 1 puff IH PRN PRN 08/06/17 [History] Hydrocortisone [Cortef] 5 mg PO HS 08/06/17 [History] Levothyroxine Sodium 75 mcg PO DAILY 08/06/17 [History] Multivitamin [One Daily Essential] 1 tab PO DAILY 08/06/17 [History] Polyethylene Glycol 3350 [MiraLAX] 17 gm PO DAILY 08/06/17 [History] Potassium Chloride [Klor-Con Sprinkle] 16 meq PO DAILY 08/06/17 [History] Tiotropium [Spiriva] 1 cap IH DAILY 08/06/17 [History] Aspirin 81 mg PO DAILY tab.chew 08/07/17 [Rx] Losartan/Hydrochlorothiazide [Hyzaar 100-25 Tablet] 1 each PO QAM 08/07/17 [ History] OxyCODONE/APAP 5/325 [Percocet 5/325 MG] 1 each PO Q6HR PRN #20 tablet 08/07/17 [Rx] Metoprolol Succinate [Metoprolol Succinate] 50 mg PO DAILY 08/08/17 [History] 3 Allergy/AdvReac Type Severity Reaction Status Date / Time amlodipine Allergy Hives Verified 08/06/17 13:40 carisoprodol [From Soma] AdvReac Itching Verified 08/06/17 13:40 codeine AdvReac Anxiety Verified 08/08/17 07:06 All Systems Review: A 10-system review of systems was performed and is negative for pertinent findings except as documented above in the HPI. - Constitutional Constitutional: no headache(s) - Cardiovascular Cardiovascular: as per HPI - Respiratory Respiratory: no dyspnea - Gastrointestinal Gastrointestinal: no abdominal pain - Genitourinary Genitourinary: no dysuria - Musculoskeletal Musculoskeletal: no abnormal gait - Integumentary Integumentary: no erythema - Neurological Neurological: no focal weakness Physical Examination General: Conversant, No Apparent Distress HEENT: Atraumatic, Normocephaly, Mucus Membranes Moist Neck: No JVD, Normal carotid pulses (no bruits heard) Cardiac: Reg Rate and Rhythm, Normal S1 and S2, No Murmur Lungs: Normal Breath Sounds, No Wheeze, Rales, Rhonchi Neuro: Alert and responsive, No focal deficits noted Abdomen: Soft, Non-Tender Skin: No rashes noted on visualized skin Musculoskeletal: No Chest Wall Tenderness Extremities: No Clubbing, No Cyanosis, Normal Pulses, Other (trace edema on left LE) Results 08/08/17 03:07 08/08/17 03:07 Lab Results 08/08/17 08/08/17 08/08/17 03:07 03:07 03:07 WBC 14.5 H Hgb 11.3 L Hct 35.2 L Plt Count 145 Sodium 136 Potassium 4.4 Chloride 102 Carbon Dioxide 28 BUN 30 H Creatinine 1.18 H Glucose 132 H Calcium 8.7 Magnesium 1.9 Troponin I 1.71 H* - Imaging and Cardiology Chest Xray: report reviewed Stress Test: report reviewed Echo: report reviewed Cardiac cath: report reviewed - EKG Interpretation EKG results cardiology: personally reviewed, no diagnostic ischemia Consult Discharge Plan - Plan Referrals: Vicente Tate MD [Primary Care Provider] - <Agnieszka Worrell - Last Filed: 08/08/17 10:02> Date of Encounter: 08/08/17 - Attending Attestation I examined this patient and my medical decision-making was reviewed with the Resident Physician. I agree with the documented findings, disposition and treatment plan. Ms. Morrow presents with chest pain and elevated troponin probably secondary to NSTEMI. ECG without new changes. She is now chest pain free. Recently underwent LE thrombectomy and recently discharged. Last cath was in 2013 demonstrating 100% stenosis in the mRCA with distal flow from collaterals, 30% circ and LAD disease. At this time, we have discussed consideration for LHC with the patient. The R/B/A of the procedure were discussed. She does report having a bleeding gastric ulcer while on plavix requiring hospitalization in the remote past when she was living in [place]. She apparently had an upper endoscopy at that time demonstrating a bleed but did not require transfusion. We discussed patient's options. At this time, she would prefer to hold off on cath until we the echo findings are resulted. If her LV systolic function remains normal, the patient would like conservative treatment. For now, continue heparin gtt, asa, statin. Further recommendations to follow. Assessment and Plan Discussion w patient/family: The assessment and plan as outlined above was discussed with the patient and/or family members who expressed understanding and agreement. All questions were answered. Thank you for involving us in the care of your patient. Please call with any questions. History of Present Illness History of present illness: Ms. Morrow is a 81 year old female All Systems Review: A 10-system review of systems was performed and is negative for pertinent findings except as documented above in the HPI. Physical Examination Vital Signs, Last 4 Hours Temp Pulse Resp BP Pulse Ox 08/08/17 07:50 97.8 F 84 16 187/69 98 Results 08/08/17 03:07 08/08/17 03:07 Lab Results 08/08/17 08/08/17 08/08/17 03:07 03:07 03:07 WBC 14.5 H Hgb 11.3 L Hct 35.2 L Plt Count 145 Sodium 136 Potassium 4.4 Chloride 102 Carbon Dioxide 28 BUN 30 H Creatinine 1.18 H Glucose 132 H Calcium 8.7 Magnesium 1.9 Troponin I 1.71 H* 08/08/17 09:04 WBC Hgb Hct Plt Count Sodium Potassium Chloride Carbon Dioxide BUN Creatinine Glucose Calcium Magnesium Troponin I 5.18 H*
[2017-08-08] MEDS ORDERED: Hydrocortisone 10 MG TABLET PO SCH ×2 (09:00→21:00)
[2017-08-08] MEDS: Tiotropium 18 MCG inhalation IH SCH (10:35)
[2017-08-08] MEDS ORDERED: Benzonatate 100 MG CAPSULE PO PRN (11:47)
[2017-08-08 12:29] LABS: Activated Partial Thrombo Time 195.8 Seconds (26.0-36.0)
[2017-08-08 12:34] LABS: Heparin anti-factor XA UFH 1.79 IU/mL (0.30-0.70)
[2017-08-08] MEDS ORDERED: 0.9 % Sodium Chloride 1,000 ML ONE (12:36)
[2017-08-08] MEDS ORDERED: Heparin 1,000 UNITS/500 mL NS 500 ML ONE (12:37)
[2017-08-08] MEDS ORDERED: *HR* Heparin 10,000 UNIT/10 ML VIAL ONE (12:37)
[2017-08-08] MEDS ORDERED: Nitroglycerin 1,000 MCG/10 ML VIAL IV ONE (12:38)
[2017-08-08] MEDS ORDERED: *HR* Midazolam HCl 2 MG/2 ML VIAL ONE (12:59)
--- NOTE | 2017-08-08 13:12 | Pre-Sedation Evaluation ---
Pre-sedation evaluation - Pre-sedation checklist Date of procedure: 08/08/17 Procedure: Heart Cath Recent Vitals: Last Vital Signs Temp 97.7 F 08/08/17 12:16 Pulse 73 08/08/17 12:16 Resp 16 08/08/17 12:16 BP 173/78 08/08/17 12:16 Pulse Ox 92 08/08/17 12:16 H&P (including ROS) documented in medical record: Yes Previous reaction to sedatives/anesthetics: No Dietary Status: NPO after Midnight Airway Assessment: Patient can open mouth completely, TMJ function normal Dentition: No loose teeth or bridges Possible difficult airway: No ASA Classification *see protocol: CLASS IV-Severe systemic disease/constant threat to pt's life Plan of Care: Pt appropriate candidate for procedure/moderate/conscious sedation , Risks/benefits of procedure/sedation discussed w/ patient/family, If not NPO; Risk of intake outweiged by necessity to perform procedure (Discussed code status, pt agrees to suspend no code periprocedure, understands and accepts potential risks.)
--- NOTE | 2017-08-08 13:43 | Event Note ---
Date of Encounter: 08/08/17 Time of Encounter: 11:05 Patient is an 81y/o female admitted for chest pain and NSTEMI. Pt seen and examined at bedside. Reports of complete resolution of chest pain, however noted to have worsening of serial TNI Cardiology on board and patient scheduled for C today Currently asymptomatic will continue heparin gtt until [facility] vitals and labs reviewed resume home medications
[2017-08-08] MEDS ORDERED: Nitroglycerin Spray 4.9 GM BOTTLE ONE (13:51)
--- NOTE | 2017-08-08 14:23 | Invasive Diagnostic Lab Proc ---
Name: Lakisha Morrow Date of Study: 08/08/2017 Date: 1935 Ht: 66.9in Medical Record#: [id number] Age: 81 Wt: 169.76lb Gender: Female BSA: 1.88 Order #: [id number] BMI: 26.64 Physicians Procedure Physician: Mark Reyes DO Referring MD: Referring MD: Staff Name Position Time In RubyJanay batista RN Monitor 01:01 PM Migdalia Frazier RN Silk Screener 01:01 PM Tracie Higgins RT (R) Scrub 01:01 PM Maryjo Bustillo RT Scrub 01:10 PM Indications Indication Non-Stemi Procedures Performed Procedure L HRT ARTERY/VENTRICLE ANGIO Pre-Procedure Checklist Informed consent is complete signed and on chart. H&P is on chart. ID band is on and ID verified with patient. Patient NPO for procedure The procedure was described for the patient and questions were answered. Blood Pressure: 173/78 ECG is on chart. Rhythm: Heart Block 1st degree Plan of Care Patient will tolerate the procedure without complications. Adequate level of comfort will be maintained. Hemodynamics will remain stable Patient will recover from procedure without complications. Respiratory function will be maintained. Cardiac rhythm will remain stable. Patient temperature will be maintained. Patient and/or family have verbalized understanding of the procedure. Patient Education Chief Complaint/Reason for Test: Cardiac Cath Developmental Category: Geriatric (65+ years) Developmentally Appropriate for Age: Yes Learning Barriers: None Education Needs: Procedure Education Method: Verbal Information Taught: Cardiac Cath Educational Evaluation: Able to repeat information Intravenous Access Time IV Size Location DC'd Fluid/Drip Rate Units RN Started with 18g needle 1 1/4" Rt Antecubital Migdalia Frazier RN 01:22 PM Started with 22g 1 " Rt Hand Migdalia Frazier RN Allergies soma codeine carisoprodol amlodipine Vital Signs Time BP (mmHg) HR (bpm) O2 Sat. RR (bpm) LOC 173 / 78 73 92 % 16 5 = Fully awake and oriented or at pre-proc level 01:08 PM / % 5 = Fully awake and oriented or at pre-proc level 01:08 PM / % 4 = Oriented but drowsy 01:23 PM / % 4 = Oriented but drowsy 01:38 PM / % 4 = Oriented but drowsy 01:12 PM 195 / 86 80 97 % 16 01:28 PM 189 / 78 74 92 % 19 01:33 PM 180 / 80 74 95 % 19 01:38 PM 177 / 75 70 95 % 16 01:43 PM 189 / 86 73 94 % 20 01:47 PM 181 / 71 73 94 % 20 01:53 PM 187 / 81 73 95 % 20 01:55 PM 173 / 78 72 94 % 19 Procedural Medications Time Medication Dose Units Method Given By 01:08 PM Oxygen 2 L/min nasal cannula Migdalia Frazier RN 01:16 PM Versed 1 mg Intravenous Migdalia Frazier RN 01:30 PM Versed 1 mg Intravenous Migdalia Frazier RN 01:31 PM Lidocaine 2% 10 ml Subcutaneous Mark Reyes, DO 01:50 PM Nitroglycerin 400 mcg Sublingual Migdalia Frazier RN ASA Classification: CLASS IV- Severe systemic that is constant threat to patient's life Edin Score Preprocedure Postprocedure Activity 2- Moves 4 extremities sustained head lift Activity 2- Moves 4 extremities sustained head lift Circulation 2- SBP +/= 20 points of pre-anesthetic level Circulation 2- SBP +/= 20 points of pre-anesthetic level Consciousness 2- Awake and alert oriented x 3 Consciousness 2- Awake and alert oriented x 3 O2 Saturation 2- Able to maintain O2 satruation of 92% on room air O2 Saturation 2- Able to maintain O2 satruation of 92% on room air Respiratory 2- Able to deep breathe and cough well Respiratory 2- Able to deep breathe and cough well Total Score 10 Total Score 10 Contrast Agent: Isovue Diagnostic Contrast: 65 ml Total Contrast: 65 ml Fluoro Dose: 179 mGy Procedure Log Time Note Enter By 12:49 PM CathStat 01:01 PM Pt arrived to laboratory immunologist 2 at 13:01 [email or web address] 01:01 PM Janay Bonilla RN Position: Monitor Time in: 13:01 manny 01:01 PM Migdalia Frazier RN Position: Silk Screener Time in: 13:01 shahla 01:01 PM Patient charges- Angio tray pack, Navilyst 3mm J, Pulse Oximetry and ACIST tubing and transducer [email or web address] 01:01 PM IV Supplies used: J loop Angio Cath. [email or web address] 01:01 PM Case Delayed No manny 01:02 PM Hair removed from procedure site in procedure lab using clippers. Bilateral groin prepped with Chloraprep by Tracie Higgins RT (R), safety strap applied then patient was draped. Skin intact. [email or web address] 01:02 PM Physican paged/called 13:02. [email or web address] 01:02 PM Meet and greet completed tsoummers 01:05 PM Physican responded and notified patient is ready 13:05 [email or web address] 01:05 PM Physician arrived 13:05 tsoummers 01:08 PM Case Start 01:08 PM Meet and greet completed tsoummers 01:08 PM Sign in performed according to hospital policy. [email or web address] 01:08 PM Procedure start 13:08 tsoummers :08 PM Time: 13:08 Oxygen on at 2 L/min per nasal cannula by Migdalia Frazier RN lynne :08 PM Time: 13:08 Patient comfortable and pain free: Yes tsoummers :08 PM Time: 13:08LOC: 5 = Fully awake and oriented or at pre-proc level [email or web address] 01:10 PM Maryjo Bustillo RT Position: Scrub Time in: 13:10 tsoummers 01:11 PM Vitals capture started with the following parameters, Patient=Adult, Interval=5 min, Initial Evrzzzyy=964 mmHg, Deflation Rate=5 mmHg, Cuff placed on Right Arm 01:12 PM Recorded ECG: HR=79 Condition=Condition 1 01:12 PM HR=80 bpm, JEJO=357/86 mmhg, SpO2=97.0 %, Resp=16 B/min 01:16 PM Time: 13:16 Versed 1 mg Intravenous Given by Migdalia Frazier RN manny :17 PM ASA Class CLASS IV- Severe systemic that is constant threat to patient's life tsoummers :17 PM Vitals capture stopped. :23 PM Time: 13:08 Patient comfortable and pain free: Yes [email or web address] :23 PM Time: 13:08LOC: 4 = Oriented but drowsy tsoummers :27 PM Pressure channel 3 zeroed. 01:27 PM Vitals capture started with the following parameters, Patient=Adult, Interval=5 min, Initial Uvfihkno=102 mmHg, Deflation Rate=5 mmHg, Cuff placed on Right Arm 01:28 PM HR=74 bpm, NGTV=001/78 mmhg, SpO2=92.0 %, Resp=19 B/min, Comment=SR 01:30 PM Time: 13:30 Versed 1 mg Intravenous Given by Migdalia Frazier RN :31 PM Clinical Presentation: Non-STEMI :31 PM Time out performed according to hospital policy : PM Time: 13:31 10 ml Lidocaine 2% to right groin Subcutaneous Given by Mark Reyes DO 01:33 PM HR=74 bpm, WVWF=705/80 mmhg, SpO2=95.0 %, Resp=19 B/min, Comment=SR 01:35 PM Unsuccessful access attempt # 1 into the right Femoral artery. Manual pressure applied to achieve hemostasis.. :35 PM Micro-Introducer Kit utilized for sheath placement :38 PM HR=70 bpm, YJQR=487/75 mmhg, SpO2=95.0 %, Resp=16 B/min, Comment=SR : PM Time: 13:23LOC: 4 = Oriented but drowsy 38 PM Time: 13:23 Patient comfortable and pain free: Yes :41 PM Access obtained by percutaneous puncture. 6Fr 10cm Terumo Grace sheath placed in right Femoral artery. [id number] :41 PM 6Fr FR 4 catheter inserted over the wire DNC 01:41 PM 0.035 145cm Navilyst 3mmJ wire [id number] 01:42 PM Recorded Pressure: LV, Ao, LV, HR=68, Condition=Condition 1 (Left Ventricle) LV 144/8/26, (Aorta) Ao 182/58/110, (Left Ventricle) LV 0/0/0 01:42 PM RCA angiography performed in multiple views. :42 PM Recorded Pressure: Ao, HR=74, Condition=Condition 1 (Aorta) Ao 190/65/117 01:42 PM Catheter selectively placed in left ventricle 01:42 PM Bolus angiogram of left Ventricle complete: hand injection. 10mls :43 PM Catheter removed :43 PM HR=73 bpm, NBCP=795/86 mmhg, SpO2=94.0 %, Resp=20 B/min, Comment=SR 01:43 PM Wire removed tsoumm 01:43 PM 0.035 260cm Navilyst 3mmJ wire [id number] tsoumm 01:43 PM 5Fr FL 3.5 catheter inserted over the wire [id number] tsoumm 01:44 PM Catheter removed tsoumm 01:44 PM 6Fr FL 3.5 Runway guide catheter was used to cannulate the PCI vessel successfully. reused? No tsoummers 01:45 PM Recorded Pressure: Ao, HR=76, Condition=Condition 1 (Aorta) Ao 208/67/124 01:46 PM LCA angiography performed in multiple views. tsoummers 01:46 PM Recorded Pressure: Ao, HR=73, Condition=Condition 1 (Aorta) Ao 196/61/114 01:46 PM NIBP STAT measurement started. 01:47 PM HR=73 bpm, HVHF=742/71 mmhg, SpO2=94.0 %, Resp=20 B/min, Comment=SR 01:49 PM Guide catheter removed intact. tsoumm 01:49 PM Wire removed tsoumm 01:50 PM Time: 13:50 Nitroglycerin 400 mcg Sublingual Given by Migdalia Frazier RN [email or web address] 01:51 PM Procedure completed at 13:51 [email or web address] 01:51 PM Sign out completed: Radiation Dose 178.71 mGy Fluoro Time: 2.2 Isovue 370 - 200ml contrast 65 ml given by Mark Reyes DO. Complications: NoneCardiac Rehab Consult needed: YesConfirmed administered medications: Yes tsoummers 01:52 PM Isovue 370 - 200ml,1 Bottle(s) used. tsoummers 01:52 PM Post ECG Heart Block 1st degree tsoummers 01:53 PM HR=73 bpm, INOV=267/81 mmhg, SpO2=95.0 %, Resp=20 B/min, Comment=NSR 01:53 PM 13:53 Post Pulses Bilateral DP & PT 2+ tsoummers 01:53 PM Information taught Cardiac Cath tsoummers 01:53 PM Education needs Procedure, Plan of Care, and Responsibilities of Patient in Care tsoummers 01:53 PM Learning barriers :None tsoummers 01:53 PM Education Methods Verbal tsoummers 01:53 PM Education evaluation Able to repeat information :53 PM Time: 13:38 Patient comfortable and pain free: Yes :53 PM Time: 13:38LOC: 4 = Oriented but drowsy mm 01:54 PM Site status No bleeding/hematoma - Rt Groin as reported by Maryjo Bustillo RT at 13:53 oumm 01:54 PM Plavix, Effient or Brilinta given No oummers 01:55 PM NIBP STAT measurement started. 01:55 PM Family placed in consult room. tsoumm 01:55 PM Complications: None mm 01:55 PM Conversation between Interventionalist and CT Surgeon. mm 01:55 PM HR=72 bpm, TABR=357/78 mmhg, SpO2=94.0 %, Resp=19 B/min, Comment=NSR 01:56 PM Coronary Dominance: right tsoummers 01:56 PM Lesion found in Proximal RCA. Pre Stenosis: 100 Pre KEVEN Flow: tsoummers 01:56 PM Lesion found in Proximal LAD. Pre Stenosis: 80 Pre KEVEN Flow: tsoummers 01:56 PM Lesion found in 1st Diagonal. Pre Stenosis: 80 Pre KEVEN Flow: tsoummers 01:56 PM Lesion found in Mid Circumflex. Pre Stenosis: 60 Pre KEVEN Flow: tsoummers 01:56 PM Lesion found in Ramus. Pre Stenosis: 80 Pre KEVEN Flow: tsoummers 01:56 PM Proximal Left Anterior Descending Coronary Artery with 80% stenosis. If graft is supplying this territory, 0 % stenosis. tsoummers 01:57 PM Mid/Distal Left Anterior Descending Coronary Artery and diagonal branches with 80% stenosis. tsoummers 01:57 PM Circumflex, Obtuse Marginal, Left Posterior Descending, and Left Posterolateral Coronary Arteries with 60 % stenosis. tsoummers 01:57 PM Vitals capture stopped. 01:58 PM Right Coronary, Right Posterior Descending Arteries with Right Posterolateral and Acute Marginal branches with 100 % stenosis. tsoummers 01:58 PM Ramus with 80% stenosis. tsoummers 01:59 PM Arterial sheath pulled using manual compression and for 15 minutes by Migdalia Frazier RN mm 02:07 PM Coronary Dominance: right tsoummers 02:07 PM Estimated Blood Loss: minimal shahla 02:10 PM Report given to Mar LEWIS Pt taken to 2A Room #42. 14:10 shahla 02:17 PM Patient out of room: 14:17 shahla Complications Complication None Hemodynamics Pressures Site Systolic/A Wave Diastolic/V Wave Mean LV 144 8 26 AO 182 58 110 AO 190 65 117 AO 208 67 124 AO 196 61 114 Post Procedure Information Rhythm: Heart Block 1st degree Post procedural instructions were given Surgery consult for CABG Site Checks Time Location Status Staff Sheath In? Note 01:53 PM Rt Groin No bleeding/hematoma Maryjo Bustillo RT Pulses Time Site Pre-Procedure Post-Procedure Note 08/08/2017 12:53:00 PM Bilateral DP & PT 2+ 08/08/2017 12:53:00 PM Bilateral radial 2+ 1:53:00 PM Bilateral DP & PT 2+ Updated by Janay Bonilla RN on 08/08/2017 2:17:16 PM electronically signed on 08/08/2017 2:18:45 PM with status of Final
[2017-08-08] MEDS: Losartan/HCTZ 50-12.5 TABLET PO SCH (14:42)
[2017-08-08] MEDS: 0.9 % Sodium Chloride 1,000 ML IVC SCH ×2 (14:42→23:45)
--- NOTE | 2017-08-08 16:12 | Cardiothoracic Consult Note ---
Date of Encounter: 08/08/17 Time of Encounter: 16:10 Assessment and Plan (1) NSTEMI (non-ST elevated myocardial infarction) Current Visit: Yes Status: Acute The patient is an 81-year-old type II diabetic, hypertensive lady with multiple medical problems including known CAD, known cerebrovascular disease, and known peripheral arterial disease. She was admitted to [facility] with diagnosis of an acute NSTEMI. A transthoracic echocardiogram revealed an LVEF 60%. Subsequent cardiac catheterization performed today revealed severe three-vessel CAD. 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 She is at high risk for poor wound healing, postoperative respiratory insufficiency, and possible renal failure. The STS risk calculator gives patient an operative mortality risk 9.18%, deep sternal wound infection risk 1.32%, permanent stroke risk 5.13%, renal failure risk 12.5 %, and reoperation risk 10.73%. She is currently considering the options of medical therapy, transferred to a tertiary Medical Center, or undergoing the operation at this institution. I will speak with the patient and her daughter tomorrow regarding their decision. The assessment and plan as outlined above was discussed with the patient and/or family members who expressed understanding and agreement. All questions were answered. - History of Present Illness Consult date: 08/08/17 Requesting physician: Mark Reyes Consult reason: CABG evaluation. Chief complaint: NSTEMI History of present illness: Ms. Morrow is a 81 year old type II diabetic, hypertensive lady with hypercholesterolemia, known CAD, known cerebrovascular disease, and known peripheral arterial disease. She underwent left femoropopliteal graft thrombectomy on August 07, 2017. Yesterday, she had sudden onset of nonradiating substernal chest pain, shortness of breath, dyspnea on exertion, and fatigue after dinner. She was evaluated at [facility] and found to have elevated troponin I levels consistent with an acute non-STEMI. She was treated medically and transferred to [facility] further care. Upon arrival at [facility] she was pain free. She underwent an echocardiogram which revealed an LVEF 60% with normal LV size, wall thickness , and overall function. Subsequent cardiac catheterization performed today revealed severe 3 vessel CAD and an LVEF 60%. In particular the patient has an 80-90% proximal LAD lesion, an 80% proximal D1 lesion, an 80% proximal LCx lesion, an 80% proximal OM1 lesion, and a completely occluded proximal RCA which fills distally via faint [id number] collaterals. She has been recommended for high risk CABG. Past Med Surg Social Fam HX - Past Medical History Medical history: arthritis, COPD, coronary artery disease, diabetes, GERD, hyperlipidemia, hypertension, myocardial infarction, peripheral artery disease, renal disease (CKD, Stage IIIB), thyroid disease, TIA, other (Glacier's disease) Psychiatric history: no psych history - Past Surgical History Surgical History: appendectomy, breast surgery (Bilateral implants), cataract, hysterectomy, orthopedic, other (Right foot), LE vascular intervention - Social History Smoking Status: Former smoker Packs per day: 2ppd X 50 years Smokeless Tobacco Status: No Alcohol use: recent (1-2 glass(es) wine daily) Drug use: none Occupational status: retired Current living situation: Home - Independent Activity Level: Independent ambulation Recent Out of Country Travel Within the Last 8 Weeks: No Exposure or Possible Exposure to Illness During Travel: No Medications and Allergies Calcium Carbonate/Vitamin D3 [Calcium 600 + Vit D Tablet] 1 tab PO BID #0 [History] Gabapentin 300 mg PO HS 05/02/15 [History] Imipramine HCl [Tofranil] 25 mg PO HS 05/02/15 [History] Hydrocortisone [Cortef] 10 mg PO DAILY 02/08/16 [History] Pravastatin Sodium [Pravachol] 80 mg PO HS 02/08/16 [History] Albuterol Sulfate [Proair Hfa] 1 puff IH PRN PRN 08/06/17 [History] Hydrocortisone [Cortef] 5 mg PO HS 08/06/17 [History] Levothyroxine Sodium 75 mcg PO DAILY 08/06/17 [History] Multivitamin [One Daily Essential] 1 tab PO DAILY 08/06/17 [History] Polyethylene Glycol 3350 [MiraLAX] 17 gm PO DAILY 08/06/17 [History] Potassium Chloride [Klor-Con Sprinkle] 16 meq PO DAILY 08/06/17 [History] Tiotropium [Spiriva] 1 cap IH DAILY 08/06/17 [History] Aspirin 81 mg PO DAILY tab.chew 08/07/17 [Rx] Losartan/Hydrochlorothiazide [Hyzaar 100-25 Tablet] 1 each PO QAM 08/07/17 [ History] OxyCODONE/APAP 5/325 [Percocet 5/325 MG] 1 each PO Q6HR PRN #20 tablet 08/07/17 [Rx] Metoprolol Succinate [Metoprolol Succinate] 50 mg PO DAILY 08/08/17 [History] 3 Allergy/AdvReac Type Severity Reaction Status Date / Time amlodipine Allergy Hives Verified 08/06/17 13:40 carisoprodol [From Soma] AdvReac Itching Verified 08/06/17 13:40 codeine AdvReac Anxiety Verified 08/08/17 07:06 All Systems Review: A 10-system review of systems was performed and is negative for pertinent findings except as documented above in the HPI. Physical Examination Vital Signs, Last 4 Hours Temp Pulse Resp BP Pulse Ox 08/08/17 15:24 97.0 F L 77 14 137/48 94 08/08/17 12:16 97.7 F 73 16 173/78 92 General: Conversant, No Apparent Distress HEENT: Atraumatic, Normocephaly, Trachea midline Neck: No JVD, Normal carotid pulses, Carotid bruit (Bilateral) Cardiac: Reg Rate and Rhythm, Normal S1 and S2, No Murmur Lungs: Normal Breath Sounds, No Wheeze, Rales, Rhonchi Neuro: Alert and responsive, No focal deficits noted Vascular: Normal capillary refill Abdomen: Soft Skin: No rashes noted on visualized skin Musculoskeletal: No Chest Wall Tenderness Extremities: No Clubbing, No Cyanosis, No Edema Results 08/08/17 03:07 08/08/17 03:07 Lab Results, Last 24 hours 08/08/17 08/08/17 08/08/17 03:07 03:07 03:07 WBC 14.5 H Hgb 11.3 L Hct 35.2 L Plt Count 145 APTT Sodium 136 Potassium 4.4 Chloride 102 Carbon Dioxide 28 BUN 30 H Creatinine 1.18 H Glucose 132 H Calcium 8.7 Magnesium 1.9 Troponin I 1.71 H* 08/08/17 08/08/17 09:04 11:45 WBC Hgb Hct Plt Count APTT 195.8 H* D Sodium Potassium Chloride Carbon Dioxide BUN Creatinine Glucose Calcium Magnesium Troponin I 5.18 H* Consult Discharge Plan - Plan Referrals: Vicente Tate MD [Primary Care Provider] -
[2017-08-08] MEDS: Gabapentin 300 MG CAPSULE PO SCH (20:46)
[2017-08-08] MEDS: Hydrocortisone 10 MG TABLET PO SCH (20:46)
[2017-08-09] MEDS: Tiotropium 18 MCG inhalation IH SCH (07:42)
[2017-08-09 08:00] LABS: BUN/Creatinine Ratio 20 (6-26); Calcium 8.2 mg/dL (8.6-10.8); Carbon Dioxide 29 mEq/L (19-29); Chloride 106 mEq/L (98-109); Glucose 97 mg/dL (70-99); Magnesium 1.9 mg/dL (1.6-2.6); Osmolality,Calculated 294 (280-300); Phosphorous 2.2 mg/dL (2.3-4.7); Sodium 141 mEq/L (136-145); eGFR For African Americans > 60 (> 60); eGFR For Non-African Americans 55 (> 60)
[2017-08-09 08:01] LABS: Blood Urea Nitrogen 19 mg/dL (7-20); Potassium 3.3 mEq/L (3.5-4.5)
[2017-08-09 08:03] LABS: Basophils # 0.2 K/mcL (0.0-0.2); Basophils % 1.2 %; Eosinophils # 0.5 K/mcL (0.0-0.6); Eosinophils % 3.6 %; Hematocrit 39.3 % (35.3-44.9); Hemoglobin 12.3 g/dL (11.5-15.4); Immature Granulocytes % 3.6 % (0-4); Lymphocytes # 4.2 K/mcL (0.6-4.6); Lymphocytes % 32.8 %; Mean Corpuscular HGB Conc 31.3 g/dL (31.6-35.5); Mean Corpuscular Hemoglobin 27.2 pg (28.0-33.3); Mean Corpuscular Volume 86.8 fL (83.0-100.0); Mean Platelet Volume 11.2 fL (9.4-12.4); Monocytes # 0.8 K/mcL (0.0-1.3); Monocytes % 6.3 %; Neutrophils # 6.6 K/mcL (1.6-8.9); Nucleated Red Blood Cells 0.2 /100 WBC (0); Platelet Count 153 K/mcL (140-400); Red Blood Count 4.53 M/mcL (3.82-4.97); Red Cell Distribution Width 13.6 % (11.5-14.5); Segmented Neutrophils % 52.5 %
[2017-08-09] MEDS: Insulin LISPRO 300 UNITS/3 ML VIAL SQ SCH ×4 (08:07→21:04)
[2017-08-09] MEDS: Losartan/HCTZ 50-12.5 TABLET PO SCH (08:12)
[2017-08-09] MEDS: Aspirin 81 MG TAB.CHEW PO SCH (08:12)
[2017-08-09] MEDS: Hydrocortisone 10 MG TABLET PO SCH ×2 (08:12→21:02)
[2017-08-09] MEDS ORDERED: Potassium Phosphate 44 MEQ in 0.9 % Sodium Chloride 250 ML IVPB ONE (08:13)
[2017-08-09] MEDS ORDERED: Metoprolol XL (24 HR) Succ 50 MG TAB.ER.24H PO SCH ×2 (09:00)
--- NOTE | 2017-08-09 10:15 | Cardiothoracic Progress Note ---
Date of Encounter: 08/09/17 Time of Encounter: 10:12 - Assessment and plan (1) NSTEMI (non-ST elevated myocardial infarction) Current Visit: Yes Status: Acute The patient is an 81-year-old type II diabetic, hypertensive lady with multiple medical problems including known CAD, known cerebrovascular disease, and known peripheral arterial disease. She was admitted to [facility] with diagnosis of an acute NSTEMI. A transthoracic echocardiogram revealed an LVEF 60%. Subsequent cardiac catheterization performed today revealed severe three-vessel CAD. She has been recommended for high risk CABG given her advanced age, COPD, chronic kidney disease, Rick's disease requiring long- term cord steroid replacement. She is at high risk for poor wound healing, postoperative respiratory insufficiency, and possible renal failure. The patient and her daughter discussed the options regarding CABG versus PCI and stent placement last night. I also spoke with Dr. Reyes stated that he would be able to perform high risk PCI and stent placement if the patient declined CABG. They wish to speak with Dr. Reyes; however, are leaning more towards PCI and stent placement rather than CABG. The assessment and plan as outlined above was discussed with the patient and/or family members who expressed understanding and agreement. All questions were answered. - Subjective Interval history: The patient remained HEMOdynamically stable last night. He denies any substernal chest pain. She is currently walking the hallway without difficulty. She has no complaints. Vital Signs, Last 4 Hours Temp Pulse Resp BP Pulse Ox 08/09/17 07:42 16 95 08/09/17 07:26 97.4 F L 80 16 180/80 95 Oxgyen Flow Rate Oxygen Flow Rate (LPM) 0 Weight 08/07/17 08/08/17 08/09/17 23:59 23:59 23:59 Weight 77.111 kg 77.111 kg - Physical Examination General: Conversant Neck: No JVD, Normal carotid pulses Cardiac: Reg Rate and Rhythm, Normal S1 and S2, No Murmur Lungs: Normal Breath Sounds, No Wheeze, Rales, Rhonchi Neuro: Alert and responsive, No focal deficits noted Vascular: Normal capillary refill Musculoskeletal: No Chest Wall Tenderness Extremities: No Clubbing, No Cyanosis, No Edema - Labs 08/09/17 07:23 08/09/17 07:23 Lab Results, Last 24 hours 08/08/17 08/09/1717 11:45 07:23 07:23 WBC 12.6 H Hgb 12.3 Hct 39.3 Plt Count 153 APTT 195.8 H* D Sodium 141 Potassium 3.3 L D Chloride 106 Carbon Dioxide 29 BUN 19 D Creatinine 0.97 Glucose 97 Calcium 8.2 L Magnesium 1.9 08/09/17 07:40 WBC Hgb Hct Plt Count APTT 108.7 H Sodium Potassium Chloride Carbon Dioxide BUN Creatinine Glucose Calcium Magnesium Consult Discharge Plan - Plan Referrals: Vicente Tate MD [Primary Care Provider] -
[2017-08-09] MEDS: 0.9 % Sodium Chloride 1,000 ML IVC SCH (10:22)
--- NOTE | 2017-08-09 14:58 | Internal Med Progress Note ---
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, cardiothoracic surgery consulted for CABG cardiothoracic surgery on board and consultation appreciated, given patient's co -morbidities and age, PCI with stent placement recommended by surger pt and daughter awaiting to speak with marketing research coordinator in regards to PCI and stent placement continue ASA, lipitor, BB continue heparin gtt (2) Leukocytosis Current Visit: Yes Status: Acute Assessment and plan: likely reactive pt chronically on steroids given history of Rick's disease No clinical signs of infectious etiology present, will continue to monitor off abx Qualifiers: Leukocytosis type: unspecified Qualified Code(s): D72.829 - Elevated white blood cell count, unspecified (3) [place] disease Current Visit: Yes Status: Chronic Assessment and plan: continue home medications (4) CAD (coronary artery disease) Current Visit: Yes Status: Chronic Assessment and plan: continue home medications Qualifiers: Coronary Disease-Associated Artery/Lesion type: [place] artery [place] vs. transplanted heart: [place] heart Associated angina: with unspecified angina Qualified Code(s): I25.119 - Atherosclerotic heart disease of [place] coronary artery with unspecified angina pectoris (5) CKD (chronic kidney disease) stage 3, GFR 30-59 ml/min Current Visit: Yes Status: Chronic Assessment and plan: renal function at baseline continue to monitor (6) COPD (chronic obstructive pulmonary disease) Current Visit: Yes Status: Chronic Assessment and plan: not in acute exacerbation continue home meds Qualifiers: COPD type: unspecified COPD Qualified Code(s): J44.9 - Chronic obstructive pulmonary disease, unspecified (7) DVT prophylaxis Current Visit: Yes Status: Acute Assessment and plan: on heparin gtt (8) T2DM (type 2 diabetes mellitus) Current Visit: Yes Status: Chronic Assessment and plan: continue sliding scale insulin algorithm monitor FS and BG ADA diet Qualifiers: Diabetes mellitus complication status: with circulatory complication Diabetes mellitus complication detail: with other circulatory complications Diabetes mellitus [facility] insulin use: without [facility] use Qualified Code( s): E11.59 - Type 2 diabetes mellitus with other circulatory complications (9) Hypertension Current Visit: Yes Status: Chronic Assessment and plan: Noted to remain hypertensive increased home dose of Metoprolol to 100mg PO qd continue Losartan/HCTZ (100/25) PO qd Hydralazine 10mg IV q6h prn SBP>160 closely monitor BP Qualifiers: Hypertension type: essential hypertension Qualified Code(s): I10 - Essential (primary) hypertension (10) Electrolyte abnormality Current Visit: Yes Status: Acute Assessment and plan: Hypokalemia and hypophosphatemia K and Phos supplemented continue to monitor electrolytes and replace as needed - Subjective Interval history: Patient seen and examined with daughter present at bedside. Pt is s/p [facility] and found to have triple vessel disease. Cardiothoracic surgery was consulted. As per cardiothoracic surgery's consultation, patient and daughter are in agreement for pursing PCI and stent placement, and wish to speak to Dr. Reyes in regards to the procedure. Pt reports of feeling better and denies any chest pain at this time. - Constitutional Vitals: Temp Pulse Resp BP Pulse Ox 97.4 F L 82 16 171/70 94 08/09/17 11:22 08/09/17 11:22 08/09/17 11:22 08/09/17 11:22 08/09/17 11:22 General appearance: Present: A&O X 3, no acute distress, obese, answers questions appropriately - Head Head exam: Present: atraumatic, normocephalic - Eye Eye exam: Present: conjuntiva pink, sclera anicteric - Respiratory Respiratory exam: Present: CTAB. Absent: respiratory distress, wheezes - Cardiovascular Cardiovascular exam: Present: RRR, +S1, +S2. Absent: diastolic murmur, gallop, rubs, systolic murmur - GI/Abdominal GI/Abdominal exam: Present: normal bowel sounds, soft, no peritoneal signs. Absent: distended, tenderness - Extremities Exam Extremities exam: Present: warm, radial pulses palpable and symmetrical. Absent : calf tenderness - Neurological Exam Neurological exam: Present: alert, oriented X3 Internal Medicine: Result - Labs CBC & Chem 7: 08/09/17 07:23 08/09/17 07:23 Labs: Short CBC 08/09/17 Range/Units 07:23 WBC 12.6 H (4.3-11.1) K/mcL Hgb 12.3 (11.5-15.4) g/dL Hct 39.3 (35.3-44.9) % Plt Count 153 (140-400) K/mcL Neutrophils # 6.6 (1.6-8.9) K/mcL BMP 08/09/17 07:23 Sodium 141 Potassium 3.3 L D Chloride 106 Carbon Dioxide 29 BUN 19 D Creatinine 0.97 Glucose 97 Calcium 8.2 L Consult Discharge Plan - Plan Referrals: Vicente Tate MD [Primary Care Provider] -
[2017-08-09] MEDS ORDERED: ALPRAZolam 0.25 MG TABLET PO ONE (16:31)
[2017-08-09 16:35] LABS: Bilirubin,Urine Negative (Negative); Blood,Urine Negative (Negative); Clarity,Urine Clear (Clear); Color,Urine Yellow (Yellow); Glucose,Urine (UA) Normal (Normal); Ketones,Urine Negative (Negative); Leukocyte Esterase,Urine Negative (Negative); Nitrite,Urine Negative (Negative); Protein,Urine Negative (Neg-Trace); Specific Gravity,Urine 1.007 (1.010-1.025); Urobilinogen,Urine Normal (Normal)
[2017-08-09] MEDS: Gabapentin 300 MG CAPSULE PO SCH (21:02)
[2017-08-10 03:25] LABS: Basophils # 0.2 K/mcL (0.0-0.2); Basophils % 1.5 %; Eosinophils # 0.8 K/mcL (0.0-0.6); Hematocrit 39.5 % (35.3-44.9); Hemoglobin 12.8 g/dL (11.5-15.4); Immature Granulocytes % 3.3 % (0-4); Lymphocytes # 4.6 K/mcL (0.6-4.6); Mean Corpuscular HGB Conc 32.4 g/dL (31.6-35.5); Mean Corpuscular Hemoglobin 27.2 pg (28.0-33.3); Mean Platelet Volume 10.8 fL (9.4-12.4); Monocytes # 1.3 K/mcL (0.0-1.3); Monocytes % 9.2 %; Neutrophils # 6.5 K/mcL (1.6-8.9); Platelet Count 159 K/mcL (140-400); Red Cell Distribution Width 13.5 % (11.5-14.5)
[2017-08-10 03:39] LABS: BUN/Creatinine Ratio 16 (6-26); Blood Urea Nitrogen 16 mg/dL (7-20); Calcium 8.4 mg/dL (8.6-10.8); Carbon Dioxide 25 mEq/L (19-29); Chloride 103 mEq/L (98-109); Glucose 123 mg/dL (70-99); Magnesium 1.6 mg/dL (1.6-2.6); Osmolality,Calculated 289 (280-300); Phosphorous 2.7 mg/dL (2.3-4.7); Potassium 3.3 mEq/L (3.5-4.5); Sodium 138 mEq/L (136-145); eGFR For African Americans > 60 (> 60); eGFR For Non-African Americans 54 (> 60)
[2017-08-10] MEDS: Heparin 25,000 UNIT/500 ML D5W 25,000 UNIT/500 ML MLS IVC SCH (05:23)
[2017-08-10] MEDS: Insulin LISPRO 300 UNITS/3 ML VIAL SQ SCH ×4 (08:42→22:37)
[2017-08-10] MEDS: Losartan/HCTZ 50-12.5 TABLET PO SCH (08:48)
[2017-08-10] MEDS: Metoprolol XL (24 HR) Succ 50 MG TAB.ER.24H PO SCH (08:49)
[2017-08-10] MEDS: Aspirin 81 MG TAB.CHEW PO SCH (08:49)
--- NOTE | 2017-08-10 08:51 | Cardiology Progress Note ---
Date of Encounter: 08/10/17 Assessment and Plan Discussion w patient/family: The assessment and plan as outlined above was discussed with the patient and/or family members who expressed understanding and agreement. All questions were answered. Thank you for involving us in the care of your patient. Please call with any questions. Objective Vital Signs, Last 4 Hours Temp Pulse Resp BP Pulse Ox 08/10/17 07:07 98.0 F 84 17 153/64 95 Results 08/10/17 03:03 08/10/17 03:03 Lab Results 08/09/17 08/09/17 08/10/17 13:47 20:51 03:03 WBC 13.8 H Hgb 12.8 Hct 39.5 Plt Count 159 APTT 74.3 H 68.1 H Sodium Potassium Chloride Carbon Dioxide BUN Creatinine Glucose Calcium Magnesium 08/10/17 03:03 WBC Hgb Hct Plt Count APTT Sodium 138 Potassium 3.3 L Chloride 103 Carbon Dioxide 25 BUN 16 Creatinine 0.98 Glucose 123 H Calcium 8.4 L Magnesium 1.6 Consult Discharge Plan - Plan Referrals: Vicente Tate MD [Primary Care Provider] -
[2017-08-10] MEDS: Hydrocortisone 10 MG TABLET PO SCH ×2 (08:52→22:37)
--- NOTE | 2017-08-10 08:57 | Event Note ---
Date of Encounter: 08/10/17 Time of Encounter: 08:30 - Cardiology Event Note Discussed options with Dr. Zambrano Friday for high risk multivessel PCI versus CABG in heart team approach. Given her comorbidities including chronic steroid use, we felt she had higher risk of complications from CABG. Reviewing angiogram, her RCA has contralateral collaterals, LAD has a long lesion, is calcified, as well as the Diagonal 1. Excluding the RCA, her Syntax score is not in the highest tercile and mcc outcome with CABG versus PCI would reach clinical equipoise. Discussed options with Ms. Morrow and her daughter this morning and they would like to proceed with multivessel PCI today with anticipated discharge tomorrow.
[2017-08-10] MEDS ORDERED: *HR* Ticagrelor 90 MG TABLET PO ONE (09:35)
--- NOTE | 2017-08-10 09:35 | Pre-Sedation Evaluation ---
Pre-sedation evaluation - Pre-sedation checklist Date of procedure: 08/08/17 Procedure: Heart Cath Recent Vitals: Last Vital Signs Temp 98.0 F 08/10/17 07:07 Pulse 84 08/10/17 07:07 Resp 17 08/10/17 07:07 BP 153/64 08/10/17 07:07 Pulse Ox 95 08/10/17 07:07 H&P (including ROS) documented in medical record: Yes Previous reaction to sedatives/anesthetics: No Dietary Status: No solid food in preceding 4 hrs and no liquid in preceding 2 hrs Dentition: No loose teeth or bridges ASA Classification *see protocol: CLASS II-Mild systemic disease Plan of Care: Pt appropriate candidate for procedure/moderate/conscious sedation , Risks/benefits of procedure/sedation discussed w/ patient/family
[2017-08-10] MEDS: Tiotropium 18 MCG inhalation IH SCH (09:40)
--- NOTE | 2017-08-10 10:44 | Internal Med Progress Note ---
Date of Encounter: 08/10/17 Time of Encounter: 10:15 - Assessment and plan (1) NSTEMI (non-ST elevated myocardial infarction) Current Visit: Yes Status: Acute Assessment and plan: Cardiology input appreciated-scheduled for [facility] today continue ASA, lipitor, BB continue heparin gtt (2) Leukocytosis Current Visit: Yes Status: Acute Assessment and plan: likely reactive pt chronically on steroids given history of [place]'s disease No clinical signs of infectious etiology present, will continue to monitor off abx Qualifiers: Leukocytosis type: unspecified Qualified Code(s): D72.829 - Elevated white blood cell count, unspecified (3) Rick disease Current Visit: Yes Status: Chronic Assessment and plan: continue home medications (4) CAD (coronary artery disease) Current Visit: Yes Status: Chronic Assessment and plan: continue home medications Qualifiers: Coronary Disease-Associated Artery/Lesion type: [place] artery [place] vs. transplanted heart: [place] heart Associated angina: with unspecified angina Qualified Code(s): I25.119 - Atherosclerotic heart disease of [place] coronary artery with unspecified angina pectoris (5) CKD (chronic kidney disease) stage 3, GFR 30-59 ml/min Current Visit: Yes Status: Chronic Assessment and plan: renal function at baseline continue to monitor (6) COPD (chronic obstructive pulmonary disease) Current Visit: Yes Status: Chronic Assessment and plan: not in acute exacerbation continue home meds Qualifiers: COPD type: unspecified COPD Qualified Code(s): J44.9 - Chronic obstructive pulmonary disease, unspecified (7) DVT prophylaxis Current Visit: Yes Status: Acute Assessment and plan: on heparin gtt (8) T2DM (type 2 diabetes mellitus) Current Visit: Yes Status: Chronic Assessment and plan: continue sliding scale insulin algorithm monitor FS and BG ADA diet Qualifiers: Diabetes mellitus complication status: with circulatory complication Diabetes mellitus complication detail: with other circulatory complications Diabetes mellitus [place] insulin use: without [place] use Qualified Code( s): E11.59 - Type 2 diabetes mellitus with other circulatory complications (9) Hypertension Current Visit: Yes Status: Chronic Assessment and plan: BP better controlled continue Metoprolol to 100mg PO qd continue Losartan/HCTZ (100/25) PO qd Hydralazine 10mg IV q6h prn SBP>160 closely monitor BP Qualifiers: Hypertension type: essential hypertension Qualified Code(s): I10 - Essential (primary) hypertension (10) Electrolyte abnormality Current Visit: Yes Status: Acute Assessment and plan: Hypokalemia K supplemented continue to monitor electrolytes and replace as needed - Subjective Interval history: Patient seen and examined at bedside. Resting comfortably in bed and denies any discomfort at this time Pt was evaluated by cardiology this morning, scheduled for [facility] today. Pt and family opted for [employer] with stent placement - Constitutional Vitals: Temp Pulse Resp BP Pulse Ox 98.0 F 84 16 153/64 98 08/10/17 07:07 08/10/17 07:07 08/10/17 09:41 08/10/17 07:07 08/10/17 09:41 General appearance: Present: A&O X 3, no acute distress, obese, answers questions appropriately - Head Head exam: Present: atraumatic, normocephalic - Eye Eye exam: Present: conjuntiva pink, sclera anicteric - Respiratory Respiratory exam: Present: CTAB. Absent: respiratory distress, wheezes - Cardiovascular Cardiovascular exam: Present: RRR, +S1, +S2. Absent: diastolic murmur, gallop, rubs, systolic murmur - GI/Abdominal GI/Abdominal exam: Present: normal bowel sounds, soft, no peritoneal signs. Absent: distended, tenderness - Extremities Exam Extremities exam: Present: warm, radial pulses palpable and symmetrical. Absent : calf tenderness, cyanotic, pedal edema - Neurological Exam Neurological exam: Present: alert, oriented X3 - Psychiatric Psychiatric exam: Present: normal affect, normal mood Internal Medicine: Result - Labs CBC & Chem 7: 08/10/17 03:03 08/10/17 03:03 Labs: Short CBC 08/10/17 Range/Units 03:03 WBC 13.8 H (4.3-11.1) K/mcL Hgb 12.8 (11.5-15.4) g/dL Hct 39.5 (35.3-44.9) % Plt Count 159 (140-400) K/mcL Neutrophils # 6.5 (1.6-8.9) K/mcL BMP 08/10/17 03:03 Sodium 138 Potassium 3.3 L Chloride 103 Carbon Dioxide 25 BUN 16 Creatinine 0.98 Glucose 123 H Calcium 8.4 L Urine 08/09/17 Range/Units 16:20 Urine Color Yellow (Yellow) Urine Clarity Clear (Clear) Urine pH 7.0 (5.0-8.0) pH Units Ur Specific [place] 1.007 L (1.010-1.025) Urine Protein Negative (Neg-Trace) mg/dL Urine Glucose (UA) Normal (Normal) mg/dL Consult Discharge Plan - Plan Referrals: Vicente Tate MD [Primary Care Provider] - (web request sent on 08/10/17)
[2017-08-10] MEDS ORDERED: Heparin 1,000 UNITS/500 mL NS 500 ML ONE ×2 (11:28→15:27)
[2017-08-10] MEDS ORDERED: Nitroglycerin 1,000 MCG/10 ML VIAL IV ONE (11:28)
[2017-08-10] MEDS ORDERED: 0.9 % Sodium Chloride 1,000 ML ONE ×3 (11:28→21:44)
[2017-08-10] MEDS ORDERED: Verapamil 5 MG/2 ML VIAL ONE ×2 (11:28→14:25)
[2017-08-10] MEDS ORDERED: *HR* Heparin 10,000 UNIT/10 ML VIAL ONE ×2 (11:28→15:28)
[2017-08-10] MEDS ORDERED: *HR* LORazepam 2 MG/ML VIAL IVP ONE (13:20)
[2017-08-10] MEDS ORDERED: *HR* Midazolam HCl 2 MG/2 ML VIAL ONE (14:08)
[2017-08-10] MEDS ORDERED: *HR* FentaNYL (PF) 100 MCG/2 ML VIAL ONE (14:09)
--- NOTE | 2017-08-10 16:31 | Invasive Diagnostic Lab Proc ---
Name: Lakisha Morrow Date of Study: 08/10/2017 Date: 1935 Ht: 66.9in Medical Record#: [id number] Age: 81 Wt: 167.55lb Gender: Female BSA: 1.87 Order #: [id number] BMI: 26.3 Physicians Procedure Physician: Sam Sabillon MD, [facility] Referring MD: Referring MD: Staff Name Position Time In [place] [facility] Monitor 02:07 PM Kady Austin RT (R) Scrub 02:07 PM Wil Ashraf RN Pyrometer Temperature Regulator 02:09 PM Migdalia Frazier RN Nurse 02:10 PM Migdalia Frazier RN Monitor 02:21 PM Kady Austin RT (R) Scrub 02:22 PM Indications Indication Non-Stemi Coronary Artery Disease, Staged PCI Procedures Performed Procedure PRQ CARD CALLY STENT W/ANGIO 1 VSL PRQ CARD STENT W/ANGIO ADDL Pre-Procedure Checklist Informed consent is complete signed and on chart. H&P is on chart. ID band is on and ID verified with patient. Patient NPO for procedure The procedure was described for the patient and questions were answered. Blood Pressure: 168/70 ECG is on chart. Rhythm: NSR Plan of Care Patient will tolerate the procedure without complications. Adequate level of comfort will be maintained. Hemodynamics will remain stable Patient will recover from procedure without complications. Respiratory function will be maintained. Cardiac rhythm will remain stable. Patient temperature will be maintained. Patient and/or family have verbalized understanding of the procedure. Patient Education Chief Complaint/Reason for Test: Cardiac Cath Developmental Category: Geriatric (65+ years) Developmentally Appropriate for Age: Yes Learning Barriers: None Education Needs: Procedure Education Method: Verbal Information Taught: Cardiac Cath Educational Evaluation: Able to repeat information Intravenous Access Time IV Size Location DC'd Fluid/Drip Rate Units RN 02:05 PM 20g 1 1/4" Patent On Arrival Rt Antecubital 0.9NaCl 25 ml/hr Wil Ashraf RN Allergies soma codeine carisoprodol amlodipine Vital Signs Time BP (mmHg) HR (bpm) O2 Sat. RR (bpm) LOC 02:09 PM 168 / 70 71 94 % 20 5 = Fully awake and oriented or at pre-proc level 02:10 PM / % 5 = Fully awake and oriented or at pre-proc level 03:30 PM / % 5 = Fully awake and oriented or at pre-proc level 03:30 PM / % 4 = Oriented but drowsy 03:45 PM / % 4 = Oriented but drowsy 02:12 PM 228 / 91 81 97 % 23 02:16 PM 202 / 75 72 97 % 20 02:17 PM 206 / 82 73 97 % 16 02:21 PM 204 / 73 82 98 % 20 02:26 PM 218 / 71 64 97 % 15 02:31 PM 112 / 46 66 99 % 15 02:32 PM 114 / 50 67 98 % 15 02:36 PM 107 / 52 63 96 % 18 02:42 PM 119 / 51 68 96 % 15 02:44 PM 105 / 40 59 94 % 33 02:46 PM 115 / 44 63 94 % 18 02:51 PM 124 / 48 64 97 % 20 02:56 PM 116 / 44 62 97 % 20 03:02 PM 129 / 45 66 97 % 24 03:06 PM 122 / 42 59 97 % 16 03:11 PM 114 / 53 65 98 % 23 04:02 PM 159 / 59 61 98 % 22 04:07 PM 171 / 63 67 96 % 20 03:17 PM 142 / 52 65 98 % 18 03:21 PM 127 / 44 60 97 % 22 03:27 PM 147 / 55 63 98 % 22 03:31 PM 114 / 54 63 97 % 22 03:37 PM 127 / 41 63 98 % 18 03:42 PM 134 / 58 62 99 % 19 03:46 PM 145 / 59 64 98 % 19 03:51 PM 153 / 51 65 99 % 17 03:56 PM 99 / 38 64 97 % 24 03:57 PM 107 / 50 59 99 % 43 04:00 PM / % 4 = Oriented but drowsy Procedural Medications Time Medication Dose Units Method Given By 02:10 PM Oxygen 2 L/min nasal cannula Wil Ashraf RN 02:15 PM Versed 2 mg Intravenous Wil Ashraf RN 02:15 PM Fentanyl 25 mcg Intravenous Wil Ashraf RN 02:27 PM Lidocaine 2% 1 ml Subcutaneous Sam Sabillon MD, FACC 02:29 PM Heparin 2000 units Nitroglycerin 200 mcg Verapamil 2.5 mg Intraarterial Sam Sabillon MD, FACC 02:29 PM Fentanyl 25 mcg Intravenous Wil Ashraf RN 02:29 PM Hydralazine 10 mg Intravenous Wil Ashraf RN 02:42 PM Nitroglycerin 150 mcg Intracoronary Sam Sabillon MD 02:46 PM Heparin 2000 units Intravenous Wil Ashraf RN 03:14 PM Lidocaine 2% 19 ml Subcutaneous [facility] MD, [facility] 03:28 PM Heparin 1500 units Intravenous Wil Ashraf RN 03:30 PM Nitroglycerin 150 mcg Intracoronary Sam Sabillon MD ASA Classification: CLASS II- Mild systemic disease (i.e. well-controlled diabetes, hypertension, asthma, cigarette smoking) Edin Score Preprocedure Postprocedure Activity Activity Circulation Circulation Consciousness Consciousness O2 Saturation O2 Saturation Respiratory Respiratory Total Score Total Score Contrast Agent: Isovue Diagnostic Contrast: 210 ml Total Contrast: 210 ml Fluoro Dose: 1505 mGy Activated Clotting Time Time Seconds to Clot 02:46 PM 224 03:28 PM 269 04:10 PM 258 Procedure Log Time Note Enter By 02:07 PM Pt arrived to medical lab scientist 2 at 14:07 [email or web address] 02:07 PM Patient charges- Angio tray pack, Navilyst 3mm J, Pulse Oximetry and ACIST tubing and transducer [email or web address] 02:08 PM Case Delayed No [email or web address] 02:08 PM Physican paged/called 14:08. [email or web address] 02:08 PM Physican responded and notified patient is ready 14:08 [email or web address] 02:08 PM Physician arrived 14:08 [email or web address] 02:08 PM Meet and greet completed [email or web address] 02:08 PM Sign in performed according to hospital policy. [email or web address] 02:08 PM Procedure start 14:08 [email or web address] 02:08 PM CathStat 02:09 PM Vitals capture started with the following parameters, Patient=Adult, Interval=5 min, Initial Ztmbiuoa=888 mmHg, Deflation Rate=5 mmHg, Cuff placed on Right Arm 02:09 PM Vitals capture started with the following parameters, Patient=Adult, Interval=5 min, Initial Ybczeeix=257 mmHg, Deflation Rate=5 mmHg, Cuff placed on Right Arm 02:10 PM Vitals capture stopped. 02:10 PM Wil Ashraf RN Position: Pyrometer Temperature Regulator Time in: 14:09 [email or web address] 02:10 PM Kady Austin RT (R) Position: Scrub Time in: 14: scoates 02:10 PM Migdalia Frazier RN Position: Nurse Time in: 14: [email or web address] 02:10 PM Time: 14:10 Oxygen on at 2 L/min per nasal cannula by Wil Ashraf RN monique 02:10 PM Time: 14:10 Patient comfortable and pain free: Yes [email or web address] 02:10 PM Migdalia Frazier RN Position: Monitor Time in: 14:21 scoates 02:10 PM Vitals capture started with the following parameters, Patient=Adult, Interval=5 min, Initial Ncsfiaqm=961 mmHg, Deflation Rate=5 mmHg, Cuff placed on Right Arm 02:10 PM Time: 14:10LOC: 5 = Fully awake and oriented or at pre-proc level [email or web address] 02:11 PM Hair removed from procedure site in procedure lab using clippers. Right wrist & right groin prepped with Chloraprep by Kady Austin (Romario), safety strap applied then patient was draped. Skin intact. [email or web address] 02:12 PM HR=81 bpm, JNZR=567/91 mmhg, SpO2=97.0 %, Resp=23 B/min, Comment=sr 02:15 PM Time: 14:15 Versed 2 mg Intravenous Given by Wil Ashraf RN scoates 02:15 PM Time: 14:15 Fentanyl 25 mcg Intravenous Given by Wil Ashraf RN scoates 02:16 PM HR=72 bpm, EXQI=943/75 mmhg, SpO2=97.0 %, Resp=20 B/min, Comment=sr 02:17 PM NIBP STAT measurement started. 02:17 PM HR=73 bpm, JOGR=443/82 mmhg, SpO2=97.0 %, Resp=16 B/min, Comment=sr 02:21 PM HR=82 bpm, OHGM=640/73 mmhg, SpO2=98.0 %, Resp=20 B/min, Comment=sr 02:26 PM HR=64 bpm, DHUI=473/71 mmhg, SpO2=97.0 %, Resp=15 B/min, Comment=sr 02:27 PM Clinical Presentation: Non-STEMI scoates 02:27 PM Time out performed according to hospital policy scoates 02:28 PM Time: 14:27 1 ml Lidocaine 2% to right groin Subcutaneous Given by Sam Sabillon MD, [facility] scoates 02:29 PM Access obtained by percutaneous puncture. 6Fr 10cm Terumo Glidesheath sheath placed in right Radial artery. [id number] scoates 02:29 PM Time: 14:29 Patient given 2,000 units Heparin, 200 mcg Nitroglycerin, and 2.5 mg Verapamil Intraarterial by Sam Sabillon MD, [facility] scoates 02:29 PM Time: 14:29 Fentanyl 25 mcg Intravenous Given by Wil Ashraf RN scoates 02:30 PM Time: 14:29 Hydralazine 10 mg Intravenous Given by Wil Ashraf RN scoates 02:30 PM PCI Status Urgent scoates 02:30 PM PCI Indication: PCI for high risk Non-STEMI or unstable angina scoates 02:30 PM 6Fr CLS 3.0 Runway guide catheter was used to cannulate the PCI vessel successfully. reused? No scoates 02:31 PM HR=66 bpm, FPZN=379/46 mmhg, SpO2=99.0 %, Resp=15 B/min, Comment=sr 02:31 PM NIBP STAT measurement started. 02:32 PM HR=67 bpm, VKID=996/50 mmhg, SpO2=98.0 %, Resp=15 B/min, Comment=sr 02:33 PM 0.035 145cm VSI Arnold-Torque wire [id number] scoates 02:33 PM Pressure channel 1 zeroed. 02:34 PM Wire removed scoates 02:34 PM Guide catheter removed intact. scoates 02:35 PM 5Fr RBL 3.5 Convey guide catheter was used to cannulate the PCI vessel successfully. reused? No scoates 02:36 PM HR=63 bpm, CXHN=485/52 mmhg, SpO2=96.0 %, Resp=18 B/min, Comment=sr 02:36 PM 0.035 180cm Glidewire wire [id number] scoates 02:38 PM Wire removed scoates 02:38 PM wholey wire reinserted. scoates 02:39 PM wire removed intact scoates 02:42 PM HR=68 bpm, JGMJ=449/51 mmhg, SpO2=96.0 %, Resp=15 B/min, Comment=sr 02:42 PM Time: 14:42 Nitroglycerin 150 mcg Intracoronary Given by Sam Sabillon MD scoates 02:44 PM Recorded Pressure: Ao, HR=70, Condition=Condition 1 (Aorta) Ao 97/33/54 02:44 PM NIBP STAT measurement started. 02:44 PM HR=59 bpm, FYZK=968/40 mmhg, SpO2=94.0 %, Resp=33 B/min, Comment=sr 02:45 PM Recorded Pressure: Ao, HR=69, Condition=Condition 1 (Aorta) Ao 95/44/65 02:45 PM ACT running scoates 02:46 PM At 14:46 the ACT was 224 seconds. scoates 02:46 PM HR=63 bpm, QVHH=286/44 mmhg, SpO2=94.0 %, Resp=18 B/min 02:46 PM Time: 14:46 Heparin 2000 units Intravenous Given by Wil Ashraf RN scoates 02:48 PM .014 [place] 190cm guide wire across target lesion- successful. reused? No scoates 02:48 PM Lesion found in Proximal LAD. Pre Stenosis: 80 Pre KEVEN Flow: 3: Complete and Brisk Flow/Perfusion scoates 02:48 PM 2.25 mm x 12 mm Emerge Monorail balloon across target lesion- successful. reused? No scoates 02:50 PM Recorded Pressure: Ao, HR=67, Condition=Condition 1 (Aorta) Ao 99/61/79 02:50 PM Balloon inflated @ 12 amadeo for 20 seconds scoates 02:51 PM HR=64 bpm, AWDF=964/48 mmhg, SpO2=97.0 %, Resp=20 B/min, Comment=sr 02:51 PM Balloon inflated @ 12 amadeo for 25 seconds scoates 02:52 PM Balloon catheter removed intact. scoates 02:53 PM Recorded Pressure: Ao, HR=60, Condition=Condition 1 (Aorta) Ao 134/44/75 02:55 PM 3.0mm x 28mm Synergy drug-eluting stent across target lesion- successful Lot #[id number] scoates 02:56 PM HR=62 bpm, NLHW=553/44 mmhg, SpO2=97.0 %, Resp=20 B/min, Comment=sr 02:58 PM Stent removed intact. Not deployed. scoates 02:59 PM 2.5 mm x 20mm NC Emerge balloon across target lesion- successful. reused? No scoates 02:59 PM Balloon inflated @ 16 amadeo for 23 seconds scoates 03:00 PM Balloon inflated @ 16 amadeo for 20 seconds scoates 03:00 PM Balloon catheter removed intact. scoates 03:02 PM HR=66 bpm, VHEM=003/45 mmhg, SpO2=97.0 %, Resp=24 B/min, Comment=sr 03:06 PM HR=59 bpm, XMQD=054/42 mmhg, SpO2=97.0 %, Resp=16 B/min, Comment=sr 03:06 PM .014 Prow[place] 182cm guide wire across target lesion- successful. reused? No scoates 03:07 PM 3x28 stent reinsert scoates 03:11 PM stent removed intact and not deployed scoates 03:11 PM HR=65 bpm, RVYT=978/53 mmhg, SpO2=98.0 %, Resp=23 B/min, Comment=sr 03:12 PM Guide wire removed intact. scoates 03:12 PM Guide catheter removed intact. scoates 03:13 PM will acess groin now scoates 03:15 PM Time: 15:14 19 ml Lidocaine 2% to right groin Subcutaneous Given by Sam Sabillon MD, [facility] scoates 03:16 PM Access obtained by percutaneous puncture. 6Fr 11cm Terumo Destination sheath placed in right Femoral artery. [id number] scoates 03:17 PM HR=65 bpm, TPWV=534/52 mmhg, SpO2=98.0 %, Resp=18 B/min, Comment=sr 03:17 PM CLS3.0 guide cath inserted via femoral sheath scoates 03:20 PM Dardanelle wire reinserted via 6f femoral sheath scoates 03:21 PM 3.0x28 stent reinserted via femoral sheath scoates 03:21 PM HR=60 bpm, LVJT=060/44 mmhg, SpO2=97.0 %, Resp=22 B/min, Comment=sr 03:24 PM Recorded Pressure: Ao, HR=63, Condition=Condition 1 (Aorta) Ao 140/41/77 03:25 PM prowater reinserted scoates 03:25 PM prowater removed scoates 03:27 PM HR=63 bpm, QWEE=520/55 mmhg, SpO2=98.0 %, Resp=22 B/min, Comment=sr 03:28 PM .014 [place] 190cm guide wire across target lesion- successful. reused? No scoates 03:28 PM At 15:28 the ACT was 269 seconds. scoates 03:28 PM Time: 15:28 Heparin 1500 units Intravenous Given by Wil Ashraf RN scoates 03:29 PM stent removed intact, not deployeed scoates 03:30 PM Time: 15:30 Patient comfortable and pain free: Yes scoates 03:30 PM Time: 15:30LOC: 5 = Fully awake and oriented or at pre-proc level scoates 03:31 PM Time: 15:30 Nitroglycerin 150 mcg Intracoronary Given by Sam Sabillon MD scoates 03:31 PM 3.0 mm x 20mm NC Trek Rx balloon across target lesion- successful. reused? No scoates 03:31 PM HR=63 bpm, MOBZ=054/54 mmhg, SpO2=97.0 %, Resp=22 B/min, Comment=sr 03:31 PM Balloon inflated @ 12 amadeo for 18 seconds scoates 03:32 PM Balloon inflated @ 18 amadeo for 19 seconds scoates 03:32 PM Balloon catheter removed intact. scoates 03:33 PM 3.0x28 stent reinserted scoates 03:35 PM Stent deployed @ 11 amadeo for 26 seconds scoates 03:35 PM 1st marvel wire removed scoates 03:37 PM Recorded Pressure: Ao, HR=60, Condition=Condition 1 (Aorta) Ao 137/40/73 03:37 PM 3.0x20nc trek balloon reinserted scoates 03:37 PM HR=63 bpm, KMLN=130/41 mmhg, SpO2=98.0 %, Resp=18 B/min, Comment=sr 03:38 PM Balloon inflated @ 18 amadeo for 21 seconds scoates 03:39 PM Balloon catheter removed intact. scoates 03:40 PM 4.0 mm x 6mm NC Emerge balloon across target lesion- successful. reused? No scoates 03:41 PM Balloon inflated @ 16 amadeo for 10 seconds scoates 03:42 PM Balloon inflated @ 16 amadeo for 10 seconds scoates 03:42 PM HR=62 bpm, NGIB=024/58 mmhg, SpO2=99.0 %, Resp=19 B/min, Comment=sr 03:43 PM Balloon catheter removed intact. scoates 03:43 PM Guide wire removed intact. scoates 03:43 PM Recorded Pressure: Ao, HR=64, Condition=Condition 1 (Aorta) Ao 160/49/90 03:45 PM Coronary Dominance: right scoates 03:45 PM Time: 15:30 Patient comfortable and pain free: Yes scoates 03:45 PM Time: 15:30LOC: 4 = Oriented but drowsy scoates 03:45 PM Lesion found in 1st Diagonal. Pre Stenosis: 80 Pre KEVEN Flow: 3: Complete and Brisk Flow/Perfusion scoates 03:46 PM HR=64 bpm, VEPQ=186/59 mmhg, SpO2=98.0 %, Resp=19 B/min, Comment=sr 03:47 PM wire inserted into the 1st diag scoates 03:47 PM 2.0 mm x 8 mm Emerge Monorail balloon across target lesion- successful. reused? No scoates 03:47 PM Balloon inflated @ 12 amadeo for 24 seconds scoates 03:50 PM Balloon catheter removed intact. scoates 03:51 PM 2.25mm x 12mm Synergy drug-eluting stent across target lesion- successful Lot #[id number] scoates 03:51 PM HR=65 bpm, OTHI=602/51 mmhg, SpO2=99.0 %, Resp=17 B/min, Comment=sr 03:51 PM Stent deployed @ 11 amadeo for 28 seconds scoates 03:51 PM Recorded Pressure: Ao, HR=66, Condition=Condition 1 (Aorta) Ao 144/55/92 03:54 PM Stent delivery system removed intact. scoates 03:54 PM 2.25 mm x 8mm NC Trek Rx balloon across target lesion- successful. reused? No scoates 03:56 PM HR=64 bpm, NIBP=99/38 mmhg, SpO2=97.0 %, Resp=24 B/min, Comment=sr 03:57 PM NIBP STAT measurement started. 03:57 PM HR=59 bpm, LTEA=453/50 mmhg, SpO2=99.0 %, Resp=43 B/min 03:58 PM Balloon inflated @ 14 amadeo for 16 seconds scoates 04:00 PM Balloon catheter removed intact. scoates 04:00 PM Guide wire removed intact. scoates 04:00 PM Time: 15:45LOC: 4 = Oriented but drowsy scoates 04:00 PM Guide catheter removed intact. scoates 04:00 PM Bolus angiogram of right Femoral complete: 4 ml/sec for a total of 7 mls scoates 04:01 PM Procedure completed at 16:00 scoates 04:01 PM Sign out completed: Radiation Dose 1505 mGy Fluoro Time: 29.9 Isovue 370 - 200ml contrast 210 ml given by Sam Sabillon MD, [facility]. Complications: NoneCardiac Rehab Consult needed: YesConfirmed administered medications: Yes scoates 04:02 PM HR=61 bpm, IUSY=806/59 mmhg, SpO2=98 %, Resp=22 B/min 04:07 PM HR=67 bpm, STTT=245/63 mmhg, SpO2=96 %, Resp=20 B/min 04:09 PM Isovue 370 - 200ml,2 Bottle(s) used. scoates 04:10 PM Sheath left in place to be pulled on floor/holding area scoates 04:10 PM Arterial sheath pulled, Vasc Band closure device used and was Successful S/N. scoates 04:10 PM 9 ml air in Vasc Band. scoates 04:10 PM Estimated Blood Loss: less than 20cc scoates 04:10 PM At 16:10 the ACT was 258 seconds. scoates 04:11 PM Post ECG NSR scoates 04:11 PM Post Blood Pressure 153/51 scoates 04:11 PM 16:11 Post Pulses Bilateral DP & PT 1+ scoates 04:12 PM Information taught Cardiac Cath, PCI, and Vasc Band scoates 04:12 PM Education needs Procedure, Plan of Care, and Responsibilities of Patient in Care scoates 04:12 PM Learning barriers :None scoates 04:12 PM Education Methods Verbal scoates 04:12 PM Education evaluation Able to repeat information scoates 04:12 PM Site status No bleeding/hematoma - Rt Groin as reported by Kady Austin RT (R) at 16:12 scoates 04:13 PM Site status bruising, but soft - Rt Wrist as reported by Kady Austin RT (R) at 16:12 scoates 04:13 PM Opsite applied to groin scoates 04:13 PM Plavix, Effient or Brilinta given No, patient took this am scoates 04:13 PM Delay to floor No scoates 04:13 PM Family placed in consult room. scoates 04:13 PM Complications: None scoates 04:15 PM Time: 16:00LOC: 4 = Oriented but drowsy scoates 04:20 PM 1ml air removed from vasc band d/t discoloration of fingers scoates 04:23 PM Report given to Rhonda LEWIS Pt taken to 2N Room #3. 16:22 scoates Complications Complication None None Hemodynamics Pressures Site Systolic/A Wave Diastolic/V Wave Mean AO 97 33 54 AO 95 44 65 AO 99 61 79 AO 134 44 75 AO 140 41 77 AO 137 40 73 AO 160 49 90 AO 144 55 92 Post Procedure Information Blood Pressure: 153/51 mmHg Rhythm: NSR Post procedural instructions were given Closure Device Time Device Success/Fail 08/10/2017 4:10:00 PM Mechanical Compression Successful 08/10/2017 4:10:00 PM Manual Compression, sheath to be pulled on the floor Site Checks Time Location Status Staff Sheath In? Note 04:12 PM Rt Groin No bleeding/hematoma Kady Austin RT (R) 04:12 PM Rt Wrist bruising, but soft Kady Austin RT (R) Pulses Time Site Pre-Procedure Post-Procedure Note 08/10/2017 2:16:00 PM Bilateral radial 2+ 08/10/2017 2:16:00 PM Bilateral DP & PT 1+ 4:11:00 PM Bilateral DP & PT 1+ Updated by Migdalia Earl RN on 08/10/2017 4:26:53 PM electronically signed on 08/10/2017 4:27:30 PM with status of Final
[2017-08-10] MEDS ORDERED: Metoprolol XL (24 HR) Succ 50 MG TAB.ER.24H PO ONE (18:00)
[2017-08-10] MEDS ORDERED: *HR* Atropine Sulfate 1 MG/ML VIAL ONE (20:54)
[2017-08-10] MEDS ORDERED: *HR* Atropine Sulfate 1 MG/10 ML SYRINGE ONE (20:55)
[2017-08-10] MEDS: Gabapentin 300 MG CAPSULE PO SCH (22:36)
[2017-08-10] MEDS: *HR* Ticagrelor 90 MG TABLET PO SCH (22:36)
[2017-08-11 03:01] LABS: Basophils # 0.2 K/mcL (0.0-0.2); Basophils % 1.4 %; Eosinophils # 0.6 K/mcL (0.0-0.6); Eosinophils % 4.6 %; Hemoglobin 12.3 g/dL (11.5-15.4); Immature Platelets 9.1 % (1.1-6.1); Lymphocytes # 2.2 K/mcL (0.6-4.6); Lymphocytes % 16.1 %; Mean Corpuscular HGB Conc 32.4 g/dL (31.6-35.5); Mean Corpuscular Hemoglobin 27.5 pg (28.0-33.3); Mean Corpuscular Volume 84.8 fL (83.0-100.0); Mean Platelet Volume 10.9 fL (9.4-12.4); Monocytes # 1.2 K/mcL (0.0-1.3); Monocytes % 8.8 %; Neutrophils # 8.6 K/mcL (1.6-8.9); Nucleated Red Blood Cells 2.7 /100 WBC (0); Platelet Count 181 K/mcL (140-400); Red Blood Count 4.48 M/mcL (3.82-4.97); Red Cell Distribution Width 13.7 % (11.5-14.5); Segmented Neutrophils % 64.1 %
[2017-08-11 03:15] LABS: BUN/Creatinine Ratio 18 (6-26); Blood Urea Nitrogen 19 mg/dL (7-20); Calcium 8.6 mg/dL (8.6-10.8); Carbon Dioxide 22 mEq/L (19-29); Chloride 101 mEq/L (98-109); Glucose 117 mg/dL (70-99); Magnesium 1.8 mg/dL (1.6-2.6); Osmolality,Calculated 281 (280-300); Phosphorous 2.7 mg/dL (2.3-4.7); Potassium 3.7 mEq/L (3.5-4.5); Sodium 134 mEq/L (136-145); eGFR For African Americans > 60 (> 60); eGFR For Non-African Americans 50 (> 60)
[2017-08-11] MEDS: Insulin LISPRO 300 UNITS/3 ML VIAL SQ SCH ×4 (08:22→21:50)
[2017-08-11] MEDS: Aspirin 81 MG TAB.CHEW PO SCH (08:30)
[2017-08-11] MEDS: *HR* Ticagrelor 90 MG TABLET PO SCH ×2 (08:30→21:19)
[2017-08-11] MEDS: Metoprolol XL (24 HR) Succ 50 MG TAB.ER.24H PO SCH (08:30)
[2017-08-11] MEDS: Losartan/HCTZ 50-12.5 TABLET PO SCH (08:30)
[2017-08-11] MEDS: Hydrocortisone 10 MG TABLET PO SCH ×2 (08:30→21:18)
--- NOTE | 2017-08-11 10:21 | Cardiology Progress Note ---
Date of Encounter: 08/11/17 Time of Encounter: 10:19 Assessment and Plan (1) NSTEMI (non-ST elevated myocardial infarction) Current Visit: Yes Status: Acute Troponins 0.06, 1.71, 5.18. [facility] 08/08 revealed severe 3 vessel CAD and an LVEF 60%. There was 80-90% proximal LAD lesion, an 80% proximal D1 lesion, an 80% proximal LCx lesion, an 80% proximal OM1 lesion, and a completely occluded proximal RCA which fills distally via faint [id number] collaterals. She was evaluated by CT surgery, ultimately pt and family decided to proceed with PCI instead. [facility] yesterday with CALLY placed to pLAD and diagonal 1. Final cath report pending. DAPT (ASA and Brilinta) uninterrupted x 1 year. Pt's daughter verbalizes understanding. Pt denies chest pain. Reports ongoing dyspnea, not new. Echocardiogram which revealed an LVEF 60% with normal LV size, wall thickness, and overall function. Complaints today are noncardiac--per daughter, pt seems disoriented, falling asleep mid sentence, unable to stand. Further management per primary team. Order PT/OT. Right femoral access site healing well. No bleeding or hematoma noted, but moderate amount of ecchymosis. Dressing on left femoral access site still intact from recent vascular surgery. Cardiology signing off. Reconsult PRN. Follow-up in 1 week as outpt, will coordinate. (2) CAD (coronary artery disease) Current Visit: Yes Status: Chronic As above. ASA, Brilinta, Statin, BB. Qualifiers: Coronary Disease-Associated Artery/Lesion type: [place] artery [place] vs. transplanted heart: [place] heart Associated angina: with unspecified angina Qualified Code(s): I25.119 - Atherosclerotic heart disease of [place] coronary artery with unspecified angina pectoris (3) PAD (peripheral artery disease) Current Visit: Yes Status: Chronic She had underwent a successful left femoral popliteal bypass on 04/06/2014 Recently had a thrombectomy of the graft on 08/06/2017 and discharged 08/07/17. Discussion w patient/family: The assessment and plan as outlined above was discussed with the patient and/or family members who expressed understanding and agreement. All questions were answered. Thank you for involving us in the care of your patient. Please call with any questions. I will discuss all the above with Dr. Reyes and make changes as necessary. Subjective Principal diagnosis: NSTEMI, CAD s/p PCI Interval history: NSTEMI--LHC initially recommended CABG consult. Seen by CT surgery, pt and family opted for PCI. S/P LHC yesterday with PCI to pLAD and diag 1. Pt denies chest pain this AM. Reports dyspnea which is not new. Daughter at bedside states pt seems disoriented and more tired. Pt fell asleep mid sentence on exam. Objective Vital Signs, Last 4 Hours Temp Pulse Resp BP Pulse Ox 08/11/17 08:48 64 08/11/17 07:12 97.5 F L 65 22 108/46 91 Vital Signs Temp Pulse Pulse Resp BP Pulse Ox 08/11/17 08:48 64 08/11/17 07:12 97.5 F L 65 22 108/46 91 08/11/17 04:58 97.9 F 67 24 99/46 96 08/10/17 23:25 99.9 F H 82 20 160/53 96 08/10/17 23:15 82 144/53 08/10/17 22:30 79 193/60 08/10/17 22:00 74 178/73 08/10/17 21:45 73 138/72 08/10/17 21:30 63 78/33 08/10/17 20:03 97.2 F L 65 18 113/55 98 08/10/17 18:50 68 68 176/68 99 08/10/17 18:30 66 171/69 99 08/10/17 18:00 64 171/57 98 08/10/17 17:45 61 18 161/54 99 08/10/17 17:30 61 16 197/91 99 08/10/17 17:20 61 18 197/91 99 08/10/17 17:10 63 17 160/125 99 08/10/17 16:50 97.7 F 60 18 199/74 99 08/10/17 16:45 65 18 196/74 99 08/10/17 10:53 97.9 F 71 20 168/70 94 Intake and Output 08/10/17 08/11/17 08/11/17 23:59 07:59 15:59 Intake Total 810 / 810 Output Total 100 / 100 Balance -100 / -100 810 / 810 Intake: Oral 810 / 810 Output: Urine 100 / 100 Other: # Voids 1 # Urine Diapers 3 1 Blood Glucose* 109 108 General: No Apparent Distress HEENT: Atraumatic, Normocephaly, Mucus Membranes Moist Neck: No JVD, Normal carotid pulses Cardiac: Reg Rate and Rhythm, Normal S1 and S2, No Murmur Lungs: Normal Breath Sounds, No Wheeze, Rales, Rhonchi Neuro: No focal deficits noted Abdomen: Soft, Non-Tender Skin: Other (right femoral access site healing well. Moderate ecchymosis. ) Musculoskeletal: No Chest Wall Tenderness Extremities: No Clubbing, No Cyanosis, No Edema, Normal Pulses Results 08/11/17 02:28 08/11/17 02:28 Lab Results 08/11/17 08/11/17 02:28 02:28 WBC 13.5 H Hgb 12.3 Hct 38.0 Plt Count 181 Sodium 134 L Potassium 3.7 Chloride 101 Carbon Dioxide 22 BUN 19 Creatinine 1.05 Glucose 117 H Calcium 8.6 Magnesium 1.8 Short CBC 08/11/17 Range/Units 02:28 WBC 13.5 H (4.3-11.1) K/mcL Hgb 12.3 (11.5-15.4) g/dL Hct 38.0 (35.3-44.9) % Plt Count 181 (140-400) K/mcL Neutrophils # 8.6 (1.6-8.9) K/mcL BMP 08/11/17 Range/Units 02:28 Sodium 134 L (136-145) mEq/L Potassium 3.7 (3.5-4.5) mEq/L Chloride 101 (98-109) mEq/L Carbon Dioxide 22 (19-29) mEq/L BUN 19 (7-20) mg/dL Creatinine 1.05 (0.57-1.11) mg/dL Glucose 117 H (70-99) mg/dL Calcium 8.6 (8.6-10.8) mg/dL Active Medications Acetaminophen (Tylenol) 650 mg PO Q6HR PRN PRN Reason: Mild to Moderate Pain (1-6) Stop: 02/07/18 02:41 Last Admin: 08/10/17 22:55 Dose: 650 mg Aspirin (Aspirin) 81 mg PO DAILY [facility] Stop: 02/07/18 09:01 Last Admin: 08/11/17 08:30 Dose: 81 mg Atorvastatin Calcium (Lipitor) 40 mg PO HS ANIBAL Stop: 02/07/18 21:01 Last Admin: 08/10/17 22:36 Dose: 40 mg Benzonatate (Tessalon) 100 mg PO TID PRN PRN Reason: Cough Stop: 02/07/18 11:48 Last Admin: 08/10/17 23:53 Dose: 100 mg Dextrose/Water (Dextrose 50% (Syg)) 25 ml IVP AD PRN PRN Reason: Hypoglycemia Stop: 02/07/18 05:25 Docusate Sodium (Colace) 100 mg PO BID PRN PRN Reason: Constipation Stop: 02/07/18 02:39 Last Admin: 08/11/17 08:33 Dose: 100 mg Gabapentin (Neurontin) 300 mg PO HS ANIBAL Stop: 02/07/18 21:01 Last Admin: 08/10/17 22:36 Dose: 300 mg Glucagon (Glucagen) 1 mg IM ONCE PRN PRN Reason: Hypoglycemia Stop: 02/07/18 05:25 Glucose (Gluctose) 15 gm PO ONCE PRN PRN Reason: Hypoglycemia Stop: 02/07/18 05:25 Glucose (Gluctose) 30 gm PO ONCE PRN PRN Reason: Hypoglycemia Stop: 02/07/18 05:25 HCTZ/Losartan Potassium (Hyzaar 50/12.5) 2 each PO DAILY ANIBAL Stop: 02/07/18 12:31 Last Admin: 08/11/17 08:30 Dose: 2 each Hydralazine HCl (Hydralazine) 10 mg IVP Q6HR PRN PRN Reason: SBP>160 Stop: 02/08/18 08:14 Last Admin: 08/10/17 21:02 Dose: 10 mg Hydrocortisone (Cortef) 10 mg PO DAILY ANIBAL Stop: 02/08/18 09:01 Last Admin: 08/11/17 08:30 Dose: 10 mg Hydrocortisone (Cortef) 5 mg PO HS ANIBAL Stop: 02/07/18 21:01 Last Admin: 08/10/17 22:37 Dose: 5 mg Dextrose (Dextrose 5%) 1,000 mls @ 100 mls/hr IVC .Q10H PRN PRN Reason: HYPOGLYCEMIA Stop: 02/07/18 05:25 Imipramine HCl (Tofranil) 25 mg PO HS [facility] Stop: 02/09/18 23:46 Last Admin: 08/10/17 23:53 Dose: 25 mg Insulin Human Lispro (Humalog) 0 units SQ TIDAC [facility] PRN Reason: Protocol Stop: 02/07/18 07:31 Last Admin: 08/11/17 08:22 Dose: Not Given Insulin Human Lispro (Humalog) 0 units SQ HS [facility] PRN Reason: Protocol Stop: 02/07/18 21:01 Last Admin: 08/10/17 22:37 Dose: Not Given Levothyroxine Sodium (Synthroid) 75 mcg PO 0630 [facility] Stop: 02/07/18 06:31 Last Admin: 08/11/17 06:16 Dose: 75 mcg Metoprolol Succinate (Toprol Xl) 100 mg PO DAILY [facility] Stop: 02/09/18 09:01 Last Admin: 08/11/17 08:30 Dose: 100 mg Naloxone HCl (Narcan) 0.4 mg IVP Q2MIN PRN PRN Reason: Opioid Reversal Stop: 02/07/18 02:39 Omeprazole (Prilosec) 40 mg PO DAILY@0630 [facility] PRN Reason: Protocol Stop: 02/07/18 06:31 Last Admin: 08/11/17 06:16 Dose: 40 mg Ondansetron HCl (Zofran) 4 mg IVP Q8HR PRN PRN Reason: Nausea And Vomiting Stop: 02/07/18 02:39 Oxycodone/Acetaminophen (Percocet 5/325) 1 each PO Q6HR PRN PRN Reason: Severe Pain (7-10) Stop: 02/07/18 02:42 Polyethylene Glycol (Miralax) 17 gm PO DAILY PRN PRN Reason: Constipation Stop: 02/08/18 14:13 Last Admin: 08/11/17 08:33 Dose: 17 gm Ticagrelor (Brilinta) 90 mg PO BID [facility] Stop: 02/09/18 21:01 Last Admin: 08/11/17 08:30 Dose: 90 mg Tiotropium [place] (Spiriva) 18 mcg IH DAILYR [facility] Stop: 02/07/18 10:01 Last Admin: 08/10/17 09:40 Dose: 18 mcg Zolpidem Tartrate (Ambien) 5 mg PO HS PRN; Protocol PRN Reason: Insomnia Stop: 02/09/18 23:49 Last Admin: 08/11/17 00:53 Dose: 5 mg - Imaging and Cardiology Echo: report reviewed Cardiac cath: report reviewed - EKG Interpretation EKG results cardiology: other (12 hr tele AVG HR 68. No significant pauses or arrhythmias.) Consult Discharge Plan - Plan Additional Instructions: RISK FACTORS: STOP SMOKING: If you smoke, STOP. Smoking or tobacco use significantly increases your risk of heart disease because nicotine causes the arteries to narrow or constrict. It also causes fats to stick to the artery. Your chances of having a heart attack are greatly increased if you continue to smoke. For more information, call the education line for smoking cessation 9-837-KVXMWHT EAT A LOW FAT/CHOLESTEROL/SODIUM DIET: This diet may help reduce your chances of having a heart attack. LIFTING: Avoid lifting anything more than 10 pounds for 5-7 days Prior to straining, laughing, sneezing and/or coughing, apply manual pressure directly over insertion site. ACTIVITY: You may walk or climb stairs as tolerated You can resume sexual activity as tolerated In general, you are encouraged to engage in a minimum of 30 minutes or more of moderate intensity physical activity, such as brisk walking, daily or at least 3 -4 times weekly BATHING Do not submerge the site into water (bath tub, hot tub, swimming pool) for 1 week. This can be a source for infection into the blood stream. You may shower after 24 hours SITE CARE: After 24 hours, you may remove the dressing and leave the site open to air. Keep the site clean and dry. Clean gently and pat dry. You can expect bruising and tenderness that gradually resolve within a week or two. Return to work as instructed per your physician Resume driving as instructed per physician Keep all scheduled follow up appointments Resume medications as instructed IMPORTANT: If prescribed a Platelet Aggregation Inhibitor such as, Plavix, Brilinta or Effient: Duration of therapy is minimum one year These medications are often used in combination with Aspirin in prevention of future heart attacks Never discontinue unless consult with your Valve Fitter STROKE (CVA) Risk factors for a stroke are: Age, cigarette smoking, diabetes, excessive alcohol consumption, family history, high blood pressure, overweight, physical inactivity, prior stroke, heart attack, diagnosis of carotid artery stenosis or other artery disease. Warning signs: Sudden numbness or weakness of the face, arm or leg; especially on one side of the body, sudden confusion, trouble speaking or understanding, sudden trouble seeing in one or both eyes, sudden trouble walking, dizziness, loss of balance or coordination, sudden severe headache with no cause. Call 911 or go to the Emergency Room. CONGESTIVE HEART FAILURE: If you have been diagnosed with Congestive Heart Failure (CHF) and your symptoms return, make an appointment with your physician Weigh yourself daily. Notify your physician if you have a weight gain of two or more pounds in one day or five or more pounds in one week. If you experience any difficulty breathing, please call 911 BLEEDING: Although the risk of bleeding is minimal, it can happen. If you have any bleeding from the site, apply firm pressure above the puncture site for 10-15 minutes. If the bleeding does not stop, continue manual pressure and call 911 Contact your physician if: You develop a fever greater than 101 degrees Fahrenheit Your site becomes reddened or has any drainage You have an increase in pain or burning at the site or if a large knot forms at the site. If you experience chest pain, shortness of breath, dizziness, or extreme tiredness, stop the activity and rest. Please notify your physicians office if you experience any of these symptoms and they are not relieved by rest please call 911! Referrals: Avery Santos MD [Partnered Physician] - 09/09/17 1:10 pm Vicente Tate MD [Primary Care Provider] - 08/15/17 11:00 am ()
[2017-08-11] MEDS: Tiotropium 18 MCG inhalation IH SCH (10:47)
--- NOTE | 2017-08-11 13:09 | Electrocardiograph Report ---
[address] [place] [address] Test Date: 2017-08-10 Pat Name: Lakisha Morrow Department: 110 Room: 2N04 Gender: F Sap Bw Developer: : [id number] Requested By: Sam Sabillon Order Number: [id number] Reading MD: Agnieszka Worrell Measurements Intervals Quinter Rate: 56 P: 102 NM: 197 QRS: -19 QRSD: 105 T: 22 QT: 466 QTc: 458 Interpretive Statements SINUS BRADYCARDIA WITH OCCASIONAL SUPRAVENTRICULAR PREMATURE COMPLEXES ANTEROSEPTAL MYOCARDIAL INFARCTION, OF INDETERMINATE AGE NONSPECIFIC ST ABNORMALITIES Electronically Signed On 08-11-2017 12:48:54 EST by Agnieszka Worrell
--- NOTE | 2017-08-11 14:03 | Internal Med Progress Note ---
<Junior Enamorado - Last Filed: 08/11/17 15:32> Date of Encounter: 08/11/17 Time of Encounter: 13:45 - Assessment and plan (1) NSTEMI (non-ST elevated myocardial infarction) Current Visit: Yes Status: Acute Assessment and plan: Troponins 0.06, 1.71, 5.18. LHC performed on 08/08 revealed severe three- vessel coronary artery disease. -Cardiology is signing off. Follow up in the outpatient setting in 1 week. -Patient denies having any chest pain swelling. -Dual antiplatelet therapy uninterrupted for 1 year; continue ASA, lipitor, BB (2) Leukocytosis Current Visit: Yes Status: Acute Assessment and plan: Patient's leukocytosis is likely reactive. Patient is on chronic steroids for treatment of [place]'s disease. 10 mg in the morning, 5 mg at night. No signs of infectious process. Qualifiers: Leukocytosis type: unspecified Qualified Code(s): D72.829 - Elevated white blood cell count, unspecified (3) [place] disease Current Visit: Yes Status: Chronic Assessment and plan: Hydrocortisone 10mg AM, 5mg PM. (4) CAD (coronary artery disease) Current Visit: Yes Status: Chronic Assessment and plan: continue home medications Qualifiers: Coronary Disease-Associated Artery/Lesion type: [place] artery [place] vs. transplanted heart: [place] heart Associated angina: with unspecified angina Qualified Code(s): I25.119 - Atherosclerotic heart disease of [place] coronary artery with unspecified angina pectoris (5) T2DM (type 2 diabetes mellitus) Current Visit: Yes Status: Chronic Assessment and plan: continue sliding scale insulin algorithm monitor FS and BG ADA diet Qualifiers: Diabetes mellitus complication status: with circulatory complication Diabetes mellitus complication detail: with other circulatory complications Diabetes mellitus termite technician insulin use: without termite technician use Qualified Code( s): E11.59 - Type 2 diabetes mellitus with other circulatory complications - Subjective Interval history: Patient was seen and examined at bedside this afternoon. She reports an episode of weakness earlier during which she felt weak in her legs when she was getting up to use the restroom. She Also felt somewhat dizzy. She denies any nausea, vomiting, or chest pain. - Constitutional Vitals: Temp Pulse Resp BP Pulse Ox 97.5 F L 63 14 154/57 93 08/11/17 11:32 08/11/17 11:32 08/11/17 11:32 08/11/17 11:32 08/11/17 11:32 General appearance: Present: A&O X 3, no acute distress, obese, answers questions appropriately - Head Head exam: Present: atraumatic, normal inspection, normocephalic - Respiratory Respiratory exam: Present: CTAB - Cardiovascular Cardiovascular exam: Present: RRR, +S1, +S2 - GI/Abdominal GI/Abdominal exam: Present: distended, soft Internal Medicine: Result - Labs CBC & Chem 7: 08/11/17 02:28 08/11/17 02:28 Labs: Short CBC 08/11/17 Range/Units 02:28 WBC 13.5 H (4.3-11.1) K/mcL Hgb 12.3 (11.5-15.4) g/dL Hct 38.0 (35.3-44.9) % Plt Count 181 (140-400) K/mcL Neutrophils # 8.6 (1.6-8.9) K/mcL BMP 08/11/17 02:28 Sodium 134 L Potassium 3.7 Chloride 101 Carbon Dioxide 22 BUN 19 Creatinine 1.05 Glucose 117 H Calcium 8.6 - Impressions Impressions Head CT 08/11/17 10:43 IMPRESSION: No acute intracranial abnormality. Diffuse atrophic changes with findings suggesting chronic microvascular ischemia D/ / Adeel Powell MD / Adeel Powell MD Interpreting Provider: Adeel Powell MD Consult Discharge Plan - Plan Additional Instructions: RISK FACTORS: STOP SMOKING: If you smoke, STOP. Smoking or tobacco use significantly increases your risk of heart disease because nicotine causes the arteries to narrow or constrict. It also causes fats to stick to the artery. Your chances of having a heart attack are greatly increased if you continue to smoke. For more information, call the education line for smoking cessation 6-551-IIYVEAQ EAT A LOW FAT/CHOLESTEROL/SODIUM DIET: This diet may help reduce your chances of having a heart attack. LIFTING: Avoid lifting anything more than 10 pounds for 5-7 days Prior to straining, laughing, sneezing and/or coughing, apply manual pressure directly over insertion site. ACTIVITY: You may walk or climb stairs as tolerated You can resume sexual activity as tolerated In general, you are encouraged to engage in a minimum of 30 minutes or more of moderate intensity physical activity, such as brisk walking, daily or at least 3 -4 times weekly BATHING Do not submerge the site into water (bath tub, hot tub, swimming pool) for 1 week. This can be a source for infection into the blood stream. You may shower after 24 hours SITE CARE: After 24 hours, you may remove the dressing and leave the site open to air. Keep the site clean and dry. Clean gently and pat dry. You can expect bruising and tenderness that gradually resolve within a week or two. Return to work as instructed per your physician Resume driving as instructed per physician Keep all scheduled follow up appointments Resume medications as instructed IMPORTANT: If prescribed a Platelet Aggregation Inhibitor such as, Plavix, Brilinta or Effient: Duration of therapy is minimum one year These medications are often used in combination with Aspirin in prevention of future heart attacks Never discontinue unless consult with your Plastic Surgery Coordinator STROKE (CVA) Risk factors for a stroke are: Age, cigarette smoking, diabetes, excessive alcohol consumption, family history, high blood pressure, overweight, physical inactivity, prior stroke, heart attack, diagnosis of carotid artery stenosis or other artery disease. Warning signs: Sudden numbness or weakness of the face, arm or leg; especially on one side of the body, sudden confusion, trouble speaking or understanding, sudden trouble seeing in one or both eyes, sudden trouble walking, dizziness, loss of balance or coordination, sudden severe headache with no cause. Call 911 or go to the Emergency Room. CONGESTIVE HEART FAILURE: If you have been diagnosed with Congestive Heart Failure (CHF) and your symptoms return, make an appointment with your physician Weigh yourself daily. Notify your physician if you have a weight gain of two or more pounds in one day or five or more pounds in one week. If you experience any difficulty breathing, please call 911 BLEEDING: Although the risk of bleeding is minimal, it can happen. If you have any bleeding from the site, apply firm pressure above the puncture site for 10-15 minutes. If the bleeding does not stop, continue manual pressure and call 911 Contact your physician if: You develop a fever greater than 101 degrees Fahrenheit Your site becomes reddened or has any drainage You have an increase in pain or burning at the site or if a large knot forms at the site. If you experience chest pain, shortness of breath, dizziness, or extreme tiredness, stop the activity and rest. Please notify your physicians office if you experience any of these symptoms and they are not relieved by rest please call 911! Referrals: Avery Santos MD [Partnered Physician] - 09/09/17 1:10 pm Vicente Tate MD [Primary Care Provider] - 08/15/17 11:00 am () <Beck Gutiérrez - Last Filed: 08/11/17 16:13> Date of Encounter: 08/11/17 - Assessment and plan (1) NSTEMI (non-ST elevated myocardial infarction) Current Visit: Yes Status: Acute (2) CAD (coronary artery disease) Current Visit: Yes Status: Chronic Qualifiers: Coronary Disease-Associated Artery/Lesion type: [place] artery [place] vs. transplanted heart: [place] heart Associated angina: with unspecified angina Qualified Code(s): I25.119 - Atherosclerotic heart disease of [place] coronary artery with unspecified angina pectoris (3) [place] disease Current Visit: Yes Status: Chronic (4) CKD (chronic kidney disease) stage 3, GFR 30-59 ml/min Current Visit: Yes Status: Chronic (5) Hypertension Current Visit: Yes Status: Chronic Qualifiers: Hypertension type: essential hypertension Qualified Code(s): I10 - Essential (primary) hypertension (6) T2DM (type 2 diabetes mellitus) Current Visit: Yes Status: Chronic Qualifiers: Diabetes mellitus complication status: with circulatory complication Diabetes mellitus complication detail: with other circulatory complications Diabetes mellitus half-way insulin use: without termite technician use Qualified Code( s): E11.59 - Type 2 diabetes mellitus with other circulatory complications (7) COPD (chronic obstructive pulmonary disease) Current Visit: Yes Status: Chronic Qualifiers: COPD type: unspecified COPD Qualified Code(s): J44.9 - Chronic obstructive pulmonary disease, unspecified (8) PAD (peripheral artery disease) Current Visit: Yes Status: Chronic - Constitutional Vitals: Temp Pulse Resp BP Pulse Ox 97.5 F L 66 14 154/57 93 08/11/17 11:32 08/11/17 15:27 08/11/17 11:32 08/11/17 11:32 08/11/17 11:32 Internal Medicine: Result - Labs CBC & Chem 7: 08/11/17 02:28 08/11/17 02:28 Labs: Short CBC 08/11/17 Range/Units 02:28 WBC 13.5 H (4.3-11.1) K/mcL Hgb 12.3 (11.5-15.4) g/dL Hct 38.0 (35.3-44.9) % Plt Count 181 (140-400) K/mcL Neutrophils # 8.6 (1.6-8.9) K/mcL BMP 08/11/17 02:28 Sodium 134 L Potassium 3.7 Chloride 101 Carbon Dioxide 22 BUN 19 Creatinine 1.05 Glucose 117 H Calcium 8.6 - Impressions Impressions Head CT 08/11/17 10:43 IMPRESSION: No acute intracranial abnormality. Diffuse atrophic changes with findings suggesting chronic microvascular ischemia D/ / Adeel Powell MD / Adeel Powell MD Interpreting Provider: Adeel Powell MD - Attending Attestation I examined this patient and my medical decision-making was reviewed with the Resident Physician on 08/11/17. I agree with the documented findings, disposition and treatment plan as described except to the extent set forth below. Ms Morrow is currently admitted for acute NSTEMI. She had LHC on 08/08 and has opted for medical management. She remains moderate to high risk due to potential for worsening cardiac status. Ms Morrow had some somnolence and weakness this AM. She is more alert and appropriate at this time (noon). No CP or SOB. No fever or chills. No cough at this time. Daughter at bedside. Awaiting therapy evals for discharge planning. Exam Alert. Comfortable Mucus membranes dry Heart distant Lungs no wheeze Abd soft I/P 1. NSTEMI - medical management at this time 2. CAD - severe disease. Med management 3. weakness - PT/OT eval 4. Addisons on home steroid Further diagnoses and plan as above.
[2017-08-11] MEDS: Sennosides/Docusate Sodium TABLET PO SCH ×2 (14:29→21:18)
[2017-08-11] MEDS: *HR* Heparin 5,000 UNIT/ML VIAL SQ SCH (17:11)
[2017-08-11] MEDS: Gabapentin 300 MG CAPSULE PO SCH (21:18)
[2017-08-12 05:32] LABS: Hematocrit 34.8 % (35.3-44.9); Hemoglobin 11.5 g/dL (11.5-15.4); Mean Corpuscular Hemoglobin 27.7 pg (28.0-33.3); Mean Corpuscular Volume 83.9 fL (83.0-100.0); Mean Platelet Volume 11.3 fL (9.4-12.4); Nucleated Red Blood Cells 0.6 /100 WBC (0); Platelet Count 166 K/mcL (140-400); Red Blood Count 4.15 M/mcL (3.82-4.97); Red Cell Distribution Width 13.6 % (11.5-14.5)
[2017-08-12 05:40] LABS: BUN/Creatinine Ratio 21 (6-26); Blood Urea Nitrogen 22 mg/dL (7-20); Calcium 8.8 mg/dL (8.6-10.8); Carbon Dioxide 26 mEq/L (19-29); Chloride 101 mEq/L (98-109); Glucose 108 mg/dL (70-99); Osmolality,Calculated 280 (280-300); Potassium 3.4 mEq/L (3.5-4.5); Sodium 133 mEq/L (136-145); eGFR For African Americans > 60 (> 60); eGFR For Non-African Americans 50 (> 60)
[2017-08-12] MEDS: *HR* Heparin 5,000 UNIT/ML VIAL SQ SCH (06:45)
[2017-08-12 06:49] LABS: Eosinophils # 0.7 K/mcL (0.0-0.6); Lymphocytes # 3.7 K/mcL (0.6-4.6); Macrocytosis Present (Not Present); Monocytes # 0.9 K/mcL (0.0-1.3); Neutrophils # 6.2 K/mcL (1.6-8.9); Platelet Estimate Normal (Normal); Polychromasia 1+ (Not Present)
[2017-08-12 06:50] LABS: Platelet Clumps Few (Not Present); Reactive Lymphocytes Present (Not Present)
[2017-08-12] MEDS: Insulin LISPRO 300 UNITS/3 ML VIAL SQ SCH ×2 (07:38→12:07)
[2017-08-12] MEDS: *HR* Ticagrelor 90 MG TABLET PO SCH (07:51)
[2017-08-12] MEDS: Hydrocortisone 10 MG TABLET PO SCH (07:51)
[2017-08-12] MEDS: Losartan/HCTZ 50-12.5 TABLET PO SCH (07:51)
[2017-08-12] MEDS: Sennosides/Docusate Sodium TABLET PO SCH (07:51)
[2017-08-12] MEDS: Aspirin 81 MG TAB.CHEW PO SCH (07:51)
[2017-08-12] MEDS: Metoprolol XL (24 HR) Succ 50 MG TAB.ER.24H PO SCH (07:52)
[2017-08-12] MEDS ORDERED: MOM Conc 10 ML UD.LIQ PO ONE (09:50)
[2017-08-12] MEDS: Tiotropium 18 MCG inhalation IH SCH (11:11)
[2017-08-12 12:33] VITALS: BP 99/47
--- NOTE | 2017-08-12 13:42 | Discharge Summary ---
<Junior Enamorado - Last Filed: 08/12/17 13:58> Date of Encounter: 08/12/17 Time of Encounter: 10:00 - Discharge Diagnosis (1) Weakness of both legs Priority: Primary Status: Acute Comments: Reports weakness in both lower extremities since 08/12/17. -Patient is not ambulated on her own since her heart cath with stent placement. -Unable to bear weight on her legs. -Describes some dizziness when she attempts to stand. -No focal neuro deficits. No strength deficits. -Will be sent to rehabilitation facility. (2) NSTEMI (non-ST elevated myocardial infarction) Priority: Primary Status: Acute Comments: Patient received 2 stents. Cardiology has signed off. Patient no longer has chest pain. (3) Leukocytosis Priority: Secondary Status: Acute Comments: Possibly due to chronic steroid use due to Rick's. Patient's white count is morning was 11.4. Qualifiers: Leukocytosis type: unspecified Qualified Code(s): D72.829 - Elevated white blood cell count, unspecified (4) Rick disease Priority: Secondary Status: Chronic Comments: Patient on chronic steroids. (5) CAD (coronary artery disease) Priority: Secondary Status: Chronic Qualifiers: Coronary Disease-Associated Artery/Lesion type: [place] artery [place] vs. transplanted heart: [place] heart Associated angina: with unspecified angina Qualified Code(s): I25.119 - Atherosclerotic heart disease of [place] coronary artery with unspecified angina pectoris (6) T2DM (type 2 diabetes mellitus) Priority: Secondary Status: Chronic Qualifiers: Diabetes mellitus complication status: with circulatory complication Diabetes mellitus complication detail: with other circulatory complications Diabetes mellitus buttermilk drier operator insulin use: without buttermilk drier operator use Qualified Code( s): E11.59 - Type 2 diabetes mellitus with other circulatory complications - Discharge Medications Prescriptions: Ticagrelor [Brilinta] 90 mg PO BID #60 tablet Home Medications: Calcium Carbonate/Vitamin D3 [Calcium 600 + Vit D Tablet] 1 tab PO BID #0 [History] Gabapentin 300 mg PO HS 05/02/15 [History] Imipramine HCl [Tofranil] 25 mg PO HS 05/02/15 [History] Hydrocortisone [Cortef] 10 mg PO DAILY 02/08/16 [History] Pravastatin Sodium [Pravachol] 80 mg PO HS 02/08/16 [History] Albuterol Sulfate [Proair Hfa] 1 puff IH PRN PRN 08/06/17 [History] Hydrocortisone [Cortef] 5 mg PO HS 08/06/17 [History] Levothyroxine Sodium 75 mcg PO DAILY 08/06/17 [History] Multivitamin [One Daily Essential] 1 tab PO DAILY 08/06/17 [History] Polyethylene Glycol 3350 [MiraLAX] 17 gm PO DAILY 08/06/17 [History] Potassium Chloride [Klor-Con Sprinkle] 16 meq PO DAILY 08/06/17 [History] Tiotropium [Spiriva] 1 cap IH DAILY 08/06/17 [History] Aspirin 81 mg PO DAILY tab.chew 08/07/17 [Rx] Losartan/Hydrochlorothiazide [Hyzaar 100-25 Tablet] 1 each PO QAM 08/07/17 [ History] OxyCODONE/APAP 5/325 [Percocet 5/325 MG] 1 each PO Q6HR PRN #20 tablet 08/07/17 [Rx] Metoprolol Succinate [Metoprolol Succinate] 50 mg PO DAILY 08/08/17 [History] Ticagrelor [Brilinta] 90 mg PO BID #60 tablet 08/12/17 [Rx] Allergies/Adverse Reactions: 3 Allergy/AdvReac Type Severity Reaction Status Date / Time amlodipine Allergy Hives Verified 08/06/17 13:40 carisoprodol [From Soma] AdvReac Itching Verified 08/06/17 13:40 codeine AdvReac Anxiety Verified 08/08/17 07:06 Procedures/tests Complete & Pending: Procedures Performed prior 72 hours Category Date Time Status Head CT without Contrast [CT head/brain wo con] [CT] Cat Scan 08/11/17 10:43 Completed Stat Left Heart Cath [CL Cardiac Catheterization] [CL] Extractions Technologist 08/10/17 13:57 Completed Routine ECG 12 lead ECG [ECG] Routine Y 08/10/17 16:32 Completed Date of admission: 08/08/17 04:52 Primary care physician: Vicente Tate MD Consults: 08/08/17 03:26 Consult to Cardiology [CONS] Routine Comment: Consulting Provider: [facility] [place] Reason for Consult: chest pain, troponin Call Completed: No 08/08/17 10:56 Consult to Cardiac Rehabilitation-Phase1 [CONS] Routine Comment: Reason for Consult: NSTEMI Call Completed: Yes 08/11/17 10:23 Consult to Physical Therapy [CONS] Routine Comment: Evaluate, develop and implement POC Reason for Consult: Evaluate for placement. 08/11/17 10:24 Consult to Occupational Therapy [CONS] Routine Comment: Evaluate, develop and implement POC Reason for Consult: Evaluate for placement. 08/11/17 10:46 Consult to Cardiology [CONS] Routine Comment: Consulting Provider: [facility] [place] Reason for Consult: CAD, per hospitalist adding back. Call Completed: Yes Discharging clinician: Junior Enamorado Anticipated date of discharge: 08/12/17 - Patient Status Disposition: Transfer Inpatient Rehab Fac Condition: Fair Overall status at discharge: patient is progressing back to baseline - Discharge Instructions Follow Up With: Avery Santos MD [Partnered Physician] - 09/09/17 1:10 pm Vicente Tate MD [Primary Care Provider] - 08/15/17 11:00 am () Additional Instructions: RISK FACTORS: STOP SMOKING: If you smoke, STOP. Smoking or tobacco use significantly increases your risk of heart disease because nicotine causes the arteries to narrow or constrict. It also causes fats to stick to the artery. Your chances of having a heart attack are greatly increased if you continue to smoke. For more information, call the education line for smoking cessation 8-481-DEWUXIP EAT A LOW FAT/CHOLESTEROL/SODIUM DIET: This diet may help reduce your chances of having a heart attack. LIFTING: Avoid lifting anything more than 10 pounds for 5-7 days Prior to straining, laughing, sneezing and/or coughing, apply manual pressure directly over insertion site. ACTIVITY: You may walk or climb stairs as tolerated You can resume sexual activity as tolerated In general, you are encouraged to engage in a minimum of 30 minutes or more of moderate intensity physical activity, such as brisk walking, daily or at least 3 -4 times weekly BATHING Do not submerge the site into water (bath tub, hot tub, swimming pool) for 1 week. This can be a source for infection into the blood stream. You may shower after 24 hours SITE CARE: After 24 hours, you may remove the dressing and leave the site open to air. Keep the site clean and dry. Clean gently and pat dry. You can expect bruising and tenderness that gradually resolve within a week or two. Return to work as instructed per your physician Resume driving as instructed per physician Keep all scheduled follow up appointments Resume medications as instructed IMPORTANT: If prescribed a Platelet Aggregation Inhibitor such as, Plavix, Brilinta or Effient: Duration of therapy is minimum one year These medications are often used in combination with Aspirin in prevention of future heart attacks Never discontinue unless consult with your Dial Printer STROKE (CVA) Risk factors for a stroke are: Age, cigarette smoking, diabetes, excessive alcohol consumption, family history, high blood pressure, overweight, physical inactivity, prior stroke, heart attack, diagnosis of carotid artery stenosis or other artery disease. Warning signs: Sudden numbness or weakness of the face, arm or leg; especially on one side of the body, sudden confusion, trouble speaking or understanding, sudden trouble seeing in one or both eyes, sudden trouble walking, dizziness, loss of balance or coordination, sudden severe headache with no cause. Call 911 or go to the Emergency Room. CONGESTIVE HEART FAILURE: If you have been diagnosed with Congestive Heart Failure (CHF) and your symptoms return, make an appointment with your physician Weigh yourself daily. Notify your physician if you have a weight gain of two or more pounds in one day or five or more pounds in one week. If you experience any difficulty breathing, please call 911 BLEEDING: Although the risk of bleeding is minimal, it can happen. If you have any bleeding from the site, apply firm pressure above the puncture site for 10-15 minutes. If the bleeding does not stop, continue manual pressure and call 911 Contact your physician if: You develop a fever greater than 101 degrees Fahrenheit Your site becomes reddened or has any drainage You have an increase in pain or burning at the site or if a large knot forms at the site. If you experience chest pain, shortness of breath, dizziness, or extreme tiredness, stop the activity and rest. Please notify your physicians office if you experience any of these symptoms and they are not relieved by rest please call 911! - Diet and Activity Activity: as per physical therapy Diet: advance to your usual diet Hospital course: Ms. Morrow is a 81 year old female with a past medical history of Rick's disease, coronary artery disease, and type 2 diabetes mellitus who presented to the hospital on 08/08/17 with a chief complaint of substernal chest pain. She described her pain as located substernally radiating to the left forearm and hand. She was at rest when the pain occurred. She was eating dinner. Her pain was accompanied by shortness of breath and nausea. She initially presented to the [facility] emergency room. Vital signs there were unremarkable. Her white count however was elevated at 18. Her troponin was 0.06. EKG did not show any ischemic changes; but demonstrated sinus rhythm with first-degree heart block. It was initially believed that her chest pain was caused by GERD. However, her troponin levels continued to increase. Her troponin went from 0.06 to 1.71. Heparin was started due to the concern of a possible NSTEMI. Cardiology was consult, and catheterization was performed. It revealed severe three-vessel disease. The LAD had a long calcified lesion. 2 stents were placed. Cardiothoracic was consult to. They assessed that performing a CABG would be very high risk given her advanced age, COPD, chronic kidney disease, and [place]'s disease. They assessed that she was high risk for poor wound healing. On 08/11/17, patient reported that she began to feel weak in her legs when she attempted to stand up. She reported that she had difficulty bearing weight. She notes that she has not ambulated on her own since her procedure. She denies having any numbness or tingling in her lower extremities. There are no focal deficits. She is able to move her legs without difficulty while she is lying down. Social work was contacted, and the family expressed interest in finding her a rehabilitation center close to where she lives. They ended up deciding on [facility]. Aside from her lower extremity weakness, patient' s condition is stable and improved. Patient denied having any chest pain or shortness of breath this morning. Her physical examination is unremarkable. She has no noted strength deficits in either of her legs. She states that the problem starts when she actually has to stand. Referral to [facility] has been made. - Time Spent with Patient Total time spent providing and/or coordinating discharge services: Greater than 30 minutes (40 minutes) - Constitutional Vitals: Temp Pulse Resp BP Pulse Ox 97.7 F 78 16 99/47 96 08/12/17 11:36 08/12/17 12:32 08/12/17 12:32 08/12/17 12:32 08/12/17 12:32 General appearance: Present: A&O X 3, no acute distress, obese, answers questions appropriately - Head Head exam: Present: atraumatic, normocephalic - Respiratory Respiratory exam: Present: CTAB. Absent: accessory muscle use, rales, rhonchi, wheezes - Cardiovascular Cardiovascular exam: Present: RRR, +S1, +S2. Absent: diastolic murmur, gallop, rubs, systolic murmur - GI/Abdominal GI/Abdominal exam: Present: normal bowel sounds, soft, no peritoneal signs. Absent: distended, tenderness - Extremities Exam Extremities exam: Present: warm, radial pulses palpable and symmetrical. Absent : calf tenderness, cyanotic, pedal edema - Neurological Exam Neurological exam: Present: no focal deficits - Skin Skin exam: Present: dry, intact <Nicole Hooker - Last Filed: 08/12/17 17:00> Date of Encounter: 08/12/17 - Discharge Diagnosis (1) NSTEMI (non-ST elevated myocardial infarction) Status: Resolved (2) Leukocytosis Status: Acute Qualifiers: Leukocytosis type: unspecified Qualified Code(s): D72.829 - Elevated white blood cell count, unspecified (3) Rick disease Status: Chronic (4) CAD (coronary artery disease) Status: Chronic Qualifiers: Coronary Disease-Associated Artery/Lesion type: [place] artery [place] vs. transplanted heart: [place] heart Associated angina: with unspecified angina Qualified Code(s): I25.119 - Atherosclerotic heart disease of [place] coronary artery with unspecified angina pectoris (5) CKD (chronic kidney disease) stage 3, GFR 30-59 ml/min Status: Chronic (6) COPD (chronic obstructive pulmonary disease) Status: Chronic Qualifiers: COPD type: unspecified COPD Qualified Code(s): J44.9 - Chronic obstructive pulmonary disease, unspecified (7) DVT prophylaxis Status: Acute (8) T2DM (type 2 diabetes mellitus) Status: Chronic Qualifiers: Diabetes mellitus complication status: with circulatory complication Diabetes mellitus complication detail: with other circulatory complications 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 mellitus 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 drier operator insulin use: without buttermilk drier operator use Qualified Code( s): E11.59 - Type 2 diabetes mellitus with other circulatory complications (9) Hypertension Status: Chronic Qualifiers: Hypertension type: essential hypertension Qualified Code(s): I10 - Essential (primary) hypertension (10) Electrolyte abnormality Status: Acute Procedures/tests Complete & Pending: Procedures Performed prior 72 hours Category Date Time Status Head CT without Contrast [CT head/brain wo con] [CT] Cat Scan 08/11/17 10:43 Completed Stat Left Heart Cath [CL Cardiac Catheterization] [CL] Extractions Technologist 08/10/17 13:57 Completed Routine ECG 12 lead ECG [ECG] Routine Y 08/10/17 16:32 Completed Date of admission: 08/08/17 04:52 Primary care physician: Vicente Tate MD Consults: 08/08/17 03:26 Consult to Cardiology [CONS] Routine Comment: Consulting Provider: Arnoldo Yousif Reason for Consult: chest pain, troponin Call Completed: No 08/08/17 10:56 Consult to Cardiac Rehabilitation-Phase1 [CONS] Routine Comment: Reason for Consult: NSTEMI Call Completed: Yes 08/11/17 10:23 Consult to Physical Therapy [CONS] Routine Comment: Evaluate, develop and implement POC Reason for Consult: Evaluate for placement. 08/11/17 10:24 Consult to Occupational Therapy [CONS] Routine Comment: Evaluate, develop and implement POC Reason for Consult: Evaluate for placement. 08/11/17 10:46 Consult to Cardiology [CONS] Routine Comment: Consulting Provider: Arnoldo Yousif Reason for Consult: CAD, per hospitalist adding back. Call Completed: Yes Hospital course: Ms. Morrow is a 81 year old female - Time Spent with Patient Total time spent providing and/or coordinating discharge services: - Constitutional Vitals: Temp Pulse Resp BP Pulse Ox 97.7 F 64 16 99/47 96 08/12/17 11:36 08/12/17 14:13 08/12/17 14:13 08/12/17 12:32 08/12/17 12:32 - Attending Attestation Patient is an 81y/o female with PMH of CAD, [place] disease, DM who was admitted for an STEMI. Patient underwent left heart cardiac catheterization and was found to have triple-vessel disease, due to which cardiothoracic surgery was consulted. Given patient's comorbidities and associated risk with the procedure, PCI with stent placement was recommended. Patient had recurrent left heart catheterization with drug-eluting stent placement. Patient tolerated the procedure well however her postop was complicated with change in mental status, and severe weakness. She had a stat CT head done to rule out CVA. CT head was negative for any acute intracranial abnormalities. Her mental status returned to baseline (alert oriented 3) however she continued to complain of severe generalized weakness. Physical therapy evaluated the patient and rehabilitation was recommended. director of consulting services were on board and patient has been accepted at an EC. Patient is hemodynamically stable with mental status at baseline. Brilinta has been added to her home medications. Patient will be discharged to ECF today with follow-up with cardiology and primary care physician. Patient and family demonstrated understanding of the diagnosis and agree with the discharge care and plan. Case was discussed with the resident physician Junior Enamorado, I agree with the documented findings, assessment, and plan, except as listed above.
--- NOTE | 2017-08-12 14:47 | Physician Discharge Referral ---
<Junior Enamorado - Last Filed: 08/12/17 14:44> ExtendedCare Referral Info Transfer To: [facility] Provider in Charge after Transfer: PCP Institutional Level of Care: Intermediate - Diagnosis (1) Weakness of both legs Priority: Primary Status: Acute (2) NSTEMI (non-ST elevated myocardial infarction) Priority: Primary Status: Resolved (3) Leukocytosis Priority: Secondary Status: Acute (4) [place] disease Priority: Secondary Status: Chronic (5) CAD (coronary artery disease) Priority: Secondary Status: Chronic (6) T2DM (type 2 diabetes mellitus) Priority: Secondary Status: Chronic Prognosis: Good Aware of Diagnosis: Patient, Family - Transfer Medications Prescriptions: Ticagrelor [Brilinta] 90 mg PO BID #60 tablet Home Medications: Calcium Carbonate/Vitamin D3 [Calcium 600 + Vit D Tablet] 1 tab PO BID #0 [History] Gabapentin 300 mg PO HS 05/02/15 [History] Imipramine HCl [Tofranil] 25 mg PO HS 05/02/15 [History] Hydrocortisone [Cortef] 10 mg PO DAILY 02/08/16 [History] Pravastatin Sodium [Pravachol] 80 mg PO HS 02/08/16 [History] Albuterol Sulfate [Proair Hfa] 1 puff IH PRN PRN 08/06/17 [History] Hydrocortisone [Cortef] 5 mg PO HS 08/06/17 [History] Levothyroxine Sodium 75 mcg PO DAILY 08/06/17 [History] Multivitamin [One Daily Essential] 1 tab PO DAILY 08/06/17 [History] Polyethylene Glycol 3350 [MiraLAX] 17 gm PO DAILY 08/06/17 [History] Potassium Chloride [Klor-Con Sprinkle] 16 meq PO DAILY 08/06/17 [History] Tiotropium [Spiriva] 1 cap IH DAILY 08/06/17 [History] Aspirin 81 mg PO DAILY tab.chew 08/07/17 [Rx] Losartan/Hydrochlorothiazide [Hyzaar 100-25 Tablet] 1 each PO QAM 08/07/17 [ History] OxyCODONE/APAP 5/325 [Percocet 5/325 MG] 1 each PO Q6HR PRN #20 tablet 08/07/17 [Rx] Metoprolol Succinate [Metoprolol Succinate] 50 mg PO DAILY 08/08/17 [History] Ticagrelor [Brilinta] 90 mg PO BID #60 tablet 08/12/17 [Rx] Allergies/Adverse Reactions: 3 Allergy/AdvReac Type Severity Reaction Status Date / Time amlodipine Allergy Hives Verified 08/06/17 13:40 carisoprodol [From Soma] AdvReac Itching Verified 08/06/17 13:40 codeine AdvReac Anxiety Verified 08/08/17 07:06 - Respiratory Orders Smoking Cessation: Smoking cessation has been advised. For more information, call the [employer] Quit Line at 7-559-IAUD-WEK. - Mobility Orders Ambulate - Rehabiliation Orders Rehab Potential: Good Rehab Orders: Evaluation for Physical Therapy - Diet Orders Cardiac CERTIFICATION: I certify that the transfer of the above named patient to an Extended Care Facility is necessary for the continuing treatment of the diagnosis listed. The above information is true and accurate reflection of patient's current condition. Confidential - Redisclosure prohibited without a patient's written consent. <Nicole Hooker - Last Filed: 08/12/17 17:01> - Diagnosis (1) NSTEMI (non-ST elevated myocardial infarction) Status: Resolved (2) Leukocytosis Status: Acute (3) Rick disease Status: Chronic (4) CAD (coronary artery disease) Status: Chronic (5) CKD (chronic kidney disease) stage 3, GFR 30-59 ml/min Status: Chronic (6) COPD (chronic obstructive pulmonary disease) Status: Chronic (7) DVT prophylaxis Status: Acute (8) T2DM (type 2 diabetes mellitus) Status: Chronic (9) Hypertension Status: Chronic (10) Electrolyte abnormality Status: Acute - Respiratory Orders Smoking Cessation: Smoking cessation has been advised. For more information, call the [employer] Line at 0-538-PQGQ-WJT. CERTIFICATION: I certify that the transfer of the above named patient to an Extended Care Facility is necessary for the continuing treatment of the diagnosis listed. The above information is true and accurate reflection of patient's current condition. Confidential - Redisclosure prohibited without a patient's written consent.
== END 2017-08-12 16:10 | DRG 247 ==
LOC: 2ANU → SUATTDRO 04:52 → 2NNU 08-10 16:39
PROVIDERS: ADMIT Internal Medicine; ATTEND Internal Medicine